=== PATIENT | male | born 1965 | race Caucasian/White ===

== ENCOUNTER → 2021-06-16 15:01 | Outpatient (CLI) | payer BC, SELFPAY ==
[2021-06-16 17:09] LABS: ALB/GLOB Ratio 1.1 RATIO (0.9-2.4); AST(SGOT) 30 U/L (15-37); Alanine Aminotransfer ALT/SGPT 54 U/L (16-61); Albumin, Serum 4.1 g/dL (3.2-5.0); Alkaline Phosphatase 50 U/L (45-117); Anion Gap 3 (5-15); BUN 23 mg/dL (7-18); BUN/Creat Ratio 26.2 RATIO (10-20); Calcium,Total 9.4 mg/dL (8.5-10.1); Chloride 104 mmol/L (98-107); Cholesterol 144 mg/dL (200); Creatinine, Serum 0.88 mg/dL (0.70-1.30); EST Glomerular Filtration Rate 95 mL/min (>60); Est Glom Filt Rate - Afr Amer 116 mL/min (>60); Globulin 3.7 g/dL (2.2-4.2); Glucose 156 mg/dL (74-106); High Density Lipoprotein 50 mg/dL; Potassium 4.8 mmol/L (3.5-5.1); Protein, Total 7.8 g/dL (6.4-8.2); Sodium Level 137 mmol/L (136-145); Thyroid Stim Hormone (TSH) 2.51 uIU/mL (0.358-3.74); Triglycerides 113 mg/dL; Very Low Density Lipoprotein 23 mg/dL (5-40)
[2021-06-16 17:13] LABS: Microalbumin:Creatinine Ratio 70.2 mg/g CRE (<30 mg/g CRE)
[2021-06-16 17:32] LABS: Vitamin D,25 Hydroxy 29.8 ng/mL
== END ==
PROVIDERS: PCP Family Medicine; Referring Provider Internal Medicine Endocrinology, Diabetes & Metabolism; Visit Provider Internal Medicine Endocrinology, Diabetes & Metabolism
DX: E11.65 Type 2 diabetes mellitus with hyperglycemia (principal); E78.00 Pure hypercholesterolemia, unspecified; I10 Essential (primary) hypertension; E55.9 Vitamin D deficiency, unspecified; R80.9 Proteinuria, unspecified
CPT/HCPCS: 36415; 80053; 80061; 82043; 82306; 82570; 84443

== ENCOUNTER 2021-11-25 09:48 | Emergency (ER) | payer BC, SELFPAY ==
[2021-11-25 09:49] VITALS: BP 147/86; PULSE 79; RESP 17; TEMP 35; O2SAT 99; BMI 29.6
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
--- NOTE | 2021-11-25 09:59 | CT_ITS ---
STUDY: CT CERVICAL SPINE WITHOUT CONTRAST REASON FOR EXAM: Male, 56 years old. Injury RADIATION DOSAGE (If Supplied By Facility): CTDIvol = ( 22.19 ) mGy, DLP = ( 391.97 ) mGycm TECHNIQUE: High resolution transaxial imaging was performed without contrast material. Sagittal and coronal images were reconstructed. Individualized dose optimization techniques were used for this CT. COMPARISON: None FINDINGS: Normal craniovertebral junction. Normal anterior atlantoaxial articulation. Normal odontoid process. Normal cervical lordosis. Normal vertebral bodies and posterior osseous elements. C2-3: Normal endplates. Normal disc height and morphology. Normal central canal and intervertebral neuroforamina. C3-4: Normal endplates. Normal disc height and morphology. Normal central canal and intervertebral neuroforamina. C4-5: Normal endplates. Normal disc height and morphology. Normal central canal and intervertebral neuroforamina. C5-6: Mild degree of disc space narrowing and anterior spondylosis at the C5-C6 level. Mild degree of uncovertebral arthrosis. C6-7: Normal endplates. Normal disc height and morphology. Normal central canal and intervertebral neuroforamina. C7-T1: Normal endplates. Normal disc height and morphology. Normal central canal and intervertebral neuroforamina. Normal visualized soft tissue structures. CT/Spine Cervical without Contras IMPRESSION: Multilevel degenerative changes, as described above. Electronically Signed: Mandeep Griffin MD at 10:38 [facility] ,
--- NOTE | 2021-11-25 09:59 | CT_ITS ---
STUDY: CT FACIAL BONES WITHOUT CONTRAST REASON FOR EXAM: Male, 56 years old. Injury RADIATION DOSAGE (If Supplied By Facility): CTDIvol = ( 29.38 ) mGy, DLP = ( 518.07 ) mGycm TECHNIQUE: The patient was scanned in a multi detector CT scanner. Sagittal and coronal images were reconstructed. Individualized dose optimization techniques were used for this CT. COMPARISON: None. FINDINGS: Right preorbital soft tissue swelling. Normal orbital hollis and orbital contents. Normal nasal bones and anterior nasal spine. Normal facial bones. There is no demonstrated fracture. Mild degree of mucosal thickening along the medial wall of the right maxillary sinus. Nasal septal deviation towards the left side of the midline. CT/Sinus/Facial Bone IMPRESSION: Mucosal thickening along the medial wall of the right maxillary sinus. Right preorbital soft tissue swelling. Electronically Signed: Mandeep Griffin MD at 10:37 EST ,
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
[2021-11-25 10:04] VITALS: O2SAT 99
[2021-11-25] MEDS: Lidocaine/Epi/Tetracaine 50 ML 1 APPLIC TOPICAL (10:12)
[2021-11-25] MEDS: Diphth,Pertuss(Acell),Tet Vac 0.5 ML Vial IM (10:12)
[2021-11-25 11:25] VITALS: PULSE 80; RESP 17; O2SAT 99
== END 2021-11-25 11:29 | disposition home or self-care (01) ==
PROVIDERS: Emergency Provider Emergency Medicine; PCP Family Medicine; Visit Provider Emergency Medicine
DX: S01.81XA Laceration without foreign body of other part of head, initial encounter (principal); E11.9 Type 2 diabetes mellitus without complications; S05.11XA Contusion of eyeball and orbital tissues, right eye, initial encounter; E78.00 Pure hypercholesterolemia, unspecified; S01.119A Laceration without foreign body of unspecified eyelid and periocular area, initial encounter; Z23 Encounter for immunization; S06.0X1A Concussion with loss of consciousness of 30 minutes or less, initial encounter; V86.59XA Driver of other special all-terrain or other off-road motor vehicle injured in nontraffic accident, initial encounter; Y92.89 Other specified places as the place of occurrence of the external cause
CPT/HCPCS: 12011; 70450; 70486; 72125; 90471; 90715; 99283

== ENCOUNTER 2021-12-17 15:42 | Outpatient (CLI) | payer BC, SELFPAY ==
[2021-12-17 17:59] LABS: Anion Gap 5 (5-15); BUN 19 mg/dL (7-18); BUN/Creat Ratio 20.9 RATIO (10-20); Calcium,Total 9.9 mg/dL (8.5-10.1); Chloride 106 mmol/L (98-107); Creatinine, Serum 0.91 mg/dL (0.70-1.30); EST Glomerular Filtration Rate 91 mL/min (>60); Est Glom Filt Rate - Afr Amer 111 mL/min (>60); Glucose 96 mg/dL (74-106); Potassium 4.3 mmol/L (3.5-5.1); Sodium Level 140 mmol/L (136-145)
== END 2021-12-17 23:59 | disposition home or self-care (01) ==
PROVIDERS: PCP Family Medicine; Visit Provider Internal Medicine Cardiovascular Disease
DX: I35.0 Nonrheumatic aortic (valve) stenosis (principal); E11.51 Type 2 diabetes mellitus with diabetic peripheral angiopathy without gangrene; I10 Essential (primary) hypertension; E78.5 Hyperlipidemia, unspecified
CPT/HCPCS: 36415; 80048

== ENCOUNTER 2022-01-05 10:41 | Outpatient (CLI) | payer BC, SELFPAY ==
--- NOTE | 2022-01-05 10:55 | ECHOD_ITS ---
Reason For Study: Aortic Stenosis Procedure This was a 2D Doppler, Color Flow transthoracic echocardiogram. Exam performed in department. Left Ventricle Normal LV size. Left ventricular systolic function is normal. The estimated ejection fraction is 60 %. Stage 1 diastolic dysfunction. No regional wall motion abnormalities noted. Right Ventricle Normal RV size. Normal systolic function. Atria Normal left atrium. Normal right atrium. Mitral Valve Normal mitral valve. Tricuspid Valve Normal tricuspid valve. Mild (1+) tricuspid valve insufficiency. Pulmonary artery systolic pressure is 30 mmHg. Aortic Valve Bicuspid aortic valve. Peak aortic valve gradient 36 mmHg. Mean aortic valve gradient 19 mmHg. Mild aortic stenosis. Pulmonic Valve Normal pulmonic valve. Great Vessels Normal aortic root. The pulmonary artery is normal size. Pericardium/Pleural No pericardial effusion. MMode/2D Measurements & Calculations LVIDd: 5.0 cm IVSd: 1.2 cm LVOT diam: 2.6 cm LVIDs: 3.3 cm LVPWd: 0.98 cm LVOT area: 5.3 cm2 RVDd: 4.5 cm FS: 34.4 % Ao root diam: 3.8 cm LAV(MOD-bp): 44.1 ml Aortic Valve Planimetry: 1.3 cm2 LA dimension: 3.8 cm LAV(MOD-bp) Indexed: 22.3 ml/m2 LAV(MOD-sp2): 51.4 ml LAV(MOD-sp4): 40.3 ml LA A4 area: 15.4 cm2 RA A4 area: 16.4 cm2 Time Measurements MV dec time: 0.39 sec Doppler Measurements & Calculations MV E max emmanuel: 58.1 cm/sec Lat Peak E' Emmanuel: 8.5 cm/sec Med Peak E' Emmanuel: 5.3 cm/sec MV A max emmanuel: 86.6 cm/sec E/E' lat: 6.8 E/E' med: 11.0 MV E/A: 0.67 MV V2 max: 87.4 cm/sec MV P1/2t max emmanuel: 60.8 cm/sec Ao V2 max: 302.7 cm/sec MV max P.1 mmHg MV P1/2t: 100.8 msec Ao max P.7 mmHg MV V2 mean: 41.7 cm/sec MV dec slope: 176.8 cm/sec2 Ao V2 mean: 201.7 cm/sec MV mean P.82 mmHg Ao mean P.9 mmHg MV V2 VTI: 24.9 cm MVA(P1/2t): 2.2 cm2 Ao V2 VTI: 72.5 cm MVA(VTI): 4.0 cm2 SILVESTRE(I,D): 1.4 cm2 SILVESTRE(V,D): 1.3 cm2 LV V1 max: 73.7 cm/sec SV(LVOT): 99.9 ml PA V2 max: 87.6 cm/sec LV V1 max P.2 mmHg LV V1 mean P.2 mmHg LV V1 mean: 49.9 cm/sec LV V1 VTI: 18.8 cm TR max emmanuel: 261.6 cm/sec TR max P.4 mmHg ECHO/Echo Complete Interpretation Summary Normal LV size. Left ventricular systolic function is normal. The estimated ejection fraction is 60 %. Bicuspid aortic valve. Stage 1 diastolic dysfunction. Mean aortic valve gradient 19 mmHg. Mild aortic stenosis. Pulmonary artery systolic pressure is 30 mmHg. Ordering Physician: KJ CRESPO Referring Physician: Brian Minor Performed By: Martin Mojica RCS
== END 2022-01-05 23:59 | disposition home or self-care (01) ==
PROVIDERS: PCP Family Medicine; Visit Provider Internal Medicine Cardiovascular Disease
DX: I35.0 Nonrheumatic aortic (valve) stenosis (principal); I10 Essential (primary) hypertension; E78.5 Hyperlipidemia, unspecified
CPT/HCPCS: 93306

== ENCOUNTER → 2022-01-13 16:45 | Outpatient (CLI) | payer BC, SELFPAY ==
--- NOTE | 2022-01-13 16:55 | CT_ITS ---
STUDY: CTA CHEST REASON FOR EXAM: Male, 56 years old. AORTIC STENOSIS RADIATION DOSAGE (If Supplied By Facility): CTDIvol = ( 13.57 ) mGy, DLP = ( 508.82 ) mGycm TECHNIQUE: The examination was performed with the intravenous administration of IV 100mL Isovue-370. Post-processing of the angiographic images was performed, with multiplanar reformation and 3D reconstruction. Individualized dose optimization techniques were used for this CT. COMPARISON: None. FINDINGS: LUNGS: No consolidation. PLEURA: No pleural effusion. No pneumothorax. PULMONARY VESSELS: No pulmonary emboli identified. MEDIASTINUM: Unremarkable. HEART: Not enlarged. Coronary artery calcifications. AORTA/GREAT VESSELS: Thoracic aorta is normal caliber. Maximal transverse diameter 3.6 cm at the proximal ascending aorta. No aneurysm or dissection. ESOPHAGUS: Small hiatal hernia. UPPER ABDOMEN: No acute findings. BONES/SOFT TISSUES: No acute findings. Pseudoarticulation between the posterior right sixth and seventh ribs. OTHER: None. CT/CTA Chest W/WO Contrast IMPRESSION: No thoracic aortic aneurysm or dissection. No acute findings. Electronically Signed: Deepthi Ascencio MD at 5:48 EDT ,
== END ==
PROVIDERS: PCP Family Medicine
DX: I35.0 Nonrheumatic aortic (valve) stenosis (principal); E11.51 Type 2 diabetes mellitus with diabetic peripheral angiopathy without gangrene; I10 Essential (primary) hypertension; E78.5 Hyperlipidemia, unspecified
CPT/HCPCS: 71275; Q9967

== ENCOUNTER 2022-06-22 17:16 | Emergency (ER) | payer BC, SELFPAY ==
[2022-06-22 17:16] VITALS: BP 152/89; PULSE 73; RESP 15; TEMP 36.4; O2SAT 98; BMI 29.7
--- NOTE | 2022-06-22 17:49 | EKG12_ITS ---
Test Reason : CP Blood Pressure : / mmHG Vent. Rate : 070 BPM Atrial Rate : 070 BPM P-R Int : 174 ms QRS Dur : 086 ms QT Int : 358 ms P-R-T Axes : 046 000 006 degrees QTc Int : 386 ms Normal sinus rhythm Minimal voltage criteria for LVH, may be normal variant ( R in aVL ) Borderline ECG Confirmed by MALLY SMITH, AMBROSIO ([id number]), society editor KVNG FIGUEROA ([id number]) on 06/23/2022 2:01:32 PM Referred By: Confirmed By:AMBROSIO BAL MD
[2022-06-22 17:50] VITALS: O2SAT 98
--- NOTE | 2022-06-22 17:56 | RAD_ITS ---
STUDY: X-RAY CHEST REASON FOR EXAM: Male, 56 years old. chest pain TECHNIQUE: XR Chest 1 View COMPARISON: None FINDINGS: There is no demonstrated pleural abnormality. Normal size heart. Normal mediastinum and faye. Normal visualized pulmonary arteries. There is atherosclerotic calcification of the aortic arch with tortuosity. There are diffuse degenerative changes of the visualized thoracic spine. There is degenerative osteoarthritis of the bilateral shoulders. There is no demonstrated abnormality of the visualized soft tissue structures of the upper abdomen. RAD/Chest 1 View (Portable) IMPRESSION: There are no acute findings. Electronically Signed: Chip Strong MD at 18:19 EDT ,
[2022-06-22 18:03] LABS: Absolute Lymphocyte Count 1.88 X10^3/uL (0.83-4.51); Absolute Neutrophil Count 3.3 X10^3/uL (2.0-7.7); Basophil# 0.03 X10^3/uL; Basophil% 0.5 % (0-1); Eosinophil# 0.17 X10^3/uL; Eosinophils% 2.9 % (0-5); Hematocrit 39.2 % (40-54); Hemoglobin 13.6 g/dL (13.0-16.5); Lymphocyte # 1.88 X10^3/ul (0.83-4.51); Lymphocyte % 31.8 % (19-41); Mean Corp Hgb Conc 34.7 g/dL (32-36); Mean Corpuscular Volume 86.5 fL (80-94); Mean Platelet Vol. 9.7 fl (6.2-12.0); Monocyte# 0.55 X10^3/uL; Monocyte% 9.3 % (0-10); NRBC Flagged by Analyzer 0 % (0-5); Neutrophil # 3.25 X10^3/uL (2.7-7.7); Neutrophil % 54.8 % (47-70); Platelet Count 177 K/mm3 (150-450); RBC Distribution Width CV 12.6 % (11.6-14.6); RBC Distribution Width SD 39.6 fl (35.1-43.9); Red Blood Count 4.53 M/mm3 (4.6-6.2); White Blood Count 5.9 K/mm3 (4.4-11.0)
[2022-06-22 18:21] LABS: Anion Gap 7 (5-15); BUN 19 mg/dL (7-18); Calcium,Total 9.6 mg/dL (8.5-10.1); Chloride 105 mmol/L (98-107); Creatinine, Serum 1.19 mg/dL (0.70-1.30); EST Glomerular Filtration Rate 67 mL/min (>60); Est Glom Filt Rate - Afr Amer 81 mL/min (>60); Glucose 246 mg/dL (74-106); Potassium 4.8 mmol/L (3.5-5.1); Sodium Level 140 mmol/L (136-145); Troponin-I HS 9 pg/mL (3.0-78.0)
[2022-06-22 18:30] VITALS: BP 149/93; PULSE 72; RESP 17; O2SAT 99
--- NOTE | 2022-06-22 18:35 | EDS_ITS ---
HPI History of Present Illness Chief Complaint: Chest Pain Narrative Narrative: 56-year-old male presenting with chest pain. He states that he was push mowing his yard with a self-propelled mower and started to have chest pain in the left side of his chest which radiated into his arm and up his neck. He states that this lasted a couple of minutes. He states he had chest tightness last week when he had his pneumonia shot and is lasted for couple of days but resolved. He states he has a history of aortic stenosis and a heart murmur. His last stress test was 2 to 3 years ago. He is never had an IN or cardiac stents. He admits to hypertension, hyperlipidemia, diabetes. Patient states that this time of year he tries to get in shape a little bit so that he can go hunting. 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 He has not had any chest pain with the running episodes. He denies any fever, chills, body aches, cough. No history of DVT/PE. [facility] Medical History Diabetes Heart valve problem High blood pressure High cholesterol History of aortic stenosis Microalbuminuria Tonsillectomy planned Home Medications carvedilol 3.125 mg tablet ea PO 06/09/21 [History Last Taken Unknown] lisinopril 40 mg tablet 40 ea PO DAILY 06/09/21 [History Last Taken Unknown] rosuvastatin 20 mg tablet ea PO 06/09/21 [History Last Taken Unknown] Farxiga 10 mg tablet (dapagliflozin) 10 mg PO DAILY #90 tabs 06/17/21 [Rx Last Taken Unknown] carvedilol 6.25 mg tablet 6.25 mg PO BID 11/24/21 [History Last Taken Unknown] cholecalciferol (vitamin D3) 50 mcg (2,000 unit) capsule 50 mcg PO DAILY 11/24/21 [History Last Taken Unknown] garlic 1,000 mg capsule 1,000 mg PO DAILY 11/24/21 [History Last Taken Unknown] omega-3 fatty acids 1,000 mg capsule 1,000 mg PO DAILY 11/24/21 [History Last Taken Unknown] insulin glargine 100 unit/mL (3 mL) subcutaneous pen 55 unit (0.55 mL) subcut QHS #18 mL 04/26/22 [Rx Last Taken Unknown] insulin lispro 100 unit/mL subcutaneous pen (Humalog KwikPen (U-100) Insulin) 20 unit (0.2 mL) subcut ONCE #6 mL 04/26/22 [Rx Last Taken Unknown] metformin 750 mg tablet,extended release 24 hr 750 mg PO BID #180 tabs 05/04/22 [Rx Last Taken Unknown] glimepiride 4 mg tablet 4 mg PO DAILY #90 tabs 05/17/22 [Rx Last Taken Unknown] Allergy/AdvReac Type Severity Reaction Status Date / Time No Known Allergies Allergy Verified 06/22/22 17:18 Family History Other CVA (cerebral vascular accident) Colon cancer Diabetes Heart disease High cholesterol Hypertension Kidney disease Myocardial infarction Social History Smoking Status: Never smoker alcohol intake: current alcohol intake frequency: holidays/special occasions only substance use type: does not use what type of physical activity do you participate in: none ROS ROS ED Constitutional Constitutional ED: Denies chills or fever(s) Eyes Eyes: Reports none ENT ENT ED: Denies rhinorrhea or sore throat Cardiovascular Cardiovascular: Reports as per HPI Respiratory/Chest Respiratory/Chest: Reports dyspnea; Denies cough Gastrointestinal Gastrointestinal: Denies abdominal pain or constipation Genitourinary Genitourinary ED: Denies dysuria or hematuria Musculoskeletal Musculoskeletal: Denies arthralgias or back pain Integumentary Denies abscess or Abrasions Neurologic Neurologic: Denies headache(s) or paresthesias Psychiatric Psychiatric: Denies anxiety or depression EXAM Physical Exam Const Vital Signs: 06/22/22 17:16 06/22/22 17:21 06/22/22 17:50 Temperature 97.6 F L Temperature Source Temporal Pulse Rate 73 Respiratory Rate 15 Respiratory Effort Normal Blood Pressure 152/89 H Blood Pressure Mean 110 Pulse Ox 98 98 Oxygen Delivery Method Room Air Room Air 06/22/22 18:30 06/22/22 19:08 06/22/22 20:20 Temperature Temperature Source Pulse Rate 72 67 65 Respiratory Rate 17 13 14 Respiratory Effort Blood Pressure 149/93 H 110/64 121/73 H Blood Pressure Mean 111 79 89 Pulse Ox 99 98 96 Oxygen Delivery Method Room Air Room Air 06/22/22 21:04 Temperature Temperature Source Pulse Rate 61 Respiratory Rate 15 Respiratory Effort Blood Pressure 133/77 H Blood Pressure Mean 95 Pulse Ox 96 Oxygen Delivery Method Room Air Positive well nourished General Appearance ED: NAD HEENT Reports TM's clear and moist mucous membranes Tympanic Membrane ED: Yes TM's clear Eyes PERRL and EOMs intact bilaterally Neck no lymphadenopathy Chest Wall inspection of chest normal and palpation of chest normal Resp normal respiratory effort and clear to auscultation bilaterally Cardio regular rate and regular rhythm Heart Score History: Moderately Suspicious ECG: Normal Age: >/= 65 years Risk Factors: >/= 3 Risk Factors or History of CAD Troponin: </= Normal Limit Score: 5 MDM MDM Lab Data Attestation: I reviewed the patient's lab results. Lab results narrative: Patient presenting with chest pain which started while mowing earlier today. It lasted about 3 minutes. He states that radiated to the left arm and left jaw. It is now resolved. Patient does admit to some chest pain last week after he has his pneumonia shot he states he had some tightness for a few days. He does admit that he was able to run at a slower pace with some dyspnea without chest pain just this last week. Last stress test was a couple years ago. HEART score is 5. EKG was obtained and sinus rhythm with a ventricular rate of 70 bpm without sign of ischemic change on my interpretation. Chest x-ray shows no acute cardiopulmonary process my interpretation the radiologist agree. CBC and BMP are unremarkable. High-sensitivity troponin is 9. Patient is PERC negative. Delta troponin came back at 23. I had a long discussion with the patient regarding heart score and his risk factors and recommended to him that he stay for cardiac evaluation. He states that he does not want to stay and he acknowledged risks of signing out AGAINST MEDICAL ADVICE. I will have him sign a form of documentation. 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 Return precautions were discussed at length. Impression: 1. Chest pain Labs: Laboratory Results - last 24 hr 06/22/22 06/22/22 06/22/22 17:55 17:55 19:52 WBC 5.9 RBC 4.53 L Hgb 13.6 Hct 39.2 L MCV 86.5 MCH 30.0 MCHC 34.7 RDW Std Deviation 39.6 RDW Coeff of [place] 12.6 Plt Count 177 MPV 9.7 Immature Gran % (Auto) 0.700 Neut % (Auto) 54.8 Lymph % (Auto) 31.8 [place] % (Auto) 9.3 Eos % (Auto) 2.9 Baso % (Auto) 0.5 Absolute Neuts (auto) 3.3 Absolute Lymphs (auto) 1.88 Nucleated RBC % 0 Sodium 140 Potassium 4.8 Chloride 105 Carbon Dioxide 28.0 Anion Gap 7 BUN 19 H Creatinine 1.19 Estim Creat Clear Calc 64.80 Est GFR (MDRD) Af Amer 81 Est GFR (MDRD) Non-Af 67 BUN/Creatinine Ratio 16.0 Glucose 246 H Calcium 9.6 Troponin I High Sens 9 23 Radiography Diagnostic Testing: Clinical Impression(s) from Imaging Studies Chest X-Ray 06/22/22 17:56 IMPRESSION: There are no acute findings. Electronically Signed: Chip Strong MD at 18:19 EDT Reading Location ID and State: [facility] / [place] , Service support , Discharge Plan Triage Chief Complaint: Chest Pain ED Provider: Dontrell Avila Dx/Rx/DC Orders Prescriptions: No Action rosuvastatin 20 mg tablet PO Label Comments: TAKE 1 TABLET BY MOUTH ONCE DAILY lisinopril 40 mg tablet 40 ea PO DAILY Label Comments: TAKE 1 TABLET BY MOUTH ONCE DAILY carvedilol 3.125 mg tablet PO Label Comments: TAKE 1 TABLET BY MOUTH TWICE DAILY WITH MEAL carvedilol 6.25 mg tablet 6.25 mg PO BID garlic 1,000 mg capsule 1,000 mg PO DAILY omega-3 fatty acids 1,000 mg capsule 1,000 mg PO DAILY cholecalciferol (vitamin D3) 50 mcg (2,000 unit) capsule 50 mcg PO DAILY metformin 750 mg tablet extended release 24 hr 750 mg PO BID Qty: 180 1RF Farxiga 10 mg tablet 10 mg PO DAILY Qty: 90 3RF insulin lispro [Humalog KwikPen Insulin] 100 unit/mL insulin pen 20 unit subcut ONCE Qty: 6 3RF insulin glargine 100 unit/mL (3 mL) insulin pen 55 unit subcut QHS Qty: 18 3RF glimepiride 4 mg tablet 4 mg PO DAILY Qty: 90 1RF Primary Care Provider: Brian Barillas Referrals: Brian Barillas MD [Primary Care Provider] -
[2022-06-22 19:08] VITALS: BP 110/64; PULSE 67; RESP 13; O2SAT 98
[2022-06-22 20:20] VITALS: BP 121/73; PULSE 65; RESP 14; O2SAT 96
[2022-06-22 20:35] LABS: Troponin-I HS 23 pg/mL (3.0-78.0)
[2022-06-22 21:04] VITALS: BP 133/77; PULSE 61; RESP 15; O2SAT 96
== END 2022-06-22 21:51 | disposition left against medical advice (07) ==
PROVIDERS: Emergency Provider Student in an Organized Health Care Education/Training Program; PCP Family Medicine; Visit Provider Student in an Organized Health Care Education/Training Program
DX: R07.9 Chest pain, unspecified (principal); E11.9 Type 2 diabetes mellitus without complications; Z79.4 Long term (current) use of insulin; I10 Essential (primary) hypertension; R06.02 Shortness of breath; E78.5 Hyperlipidemia, unspecified; Z79.84 Long term (current) use of oral hypoglycemic drugs; Z79.899 Other long term (current) drug therapy
CPT/HCPCS: 71045; 80048; 84484; 85025; 93005; A4216

== ENCOUNTER 2022-06-22 22:33 | Observation (INO) | payer BC, SELFPAY ==
[2022-06-22 22:35] VITALS: BP 157/83; PULSE 61; RESP 15; TEMP 36.2; O2SAT 100; BMI 29.7
--- NOTE | 2022-06-22 22:46 | EKG12_ITS ---
Test Reason : DYSRHYTHMIA Blood Pressure : / mmHG Vent. Rate : 057 BPM Atrial Rate : 057 BPM P-R Int : 190 ms QRS Dur : 088 ms QT Int : 394 ms P-R-T Axes : 013 002 000 degrees QTc Int : 383 ms Sinus bradycardia Otherwise normal ECG Confirmed by MALLY SMITH, AMBROSIO ([id number]), dictionary editor KVNG FIGUEROA ([id number]) on 06/25/2022 9:38:19 AM Referred By: MADDIE Confirmed By:AMBROSIO BAL MD
--- NOTE | 2022-06-22 22:47 | EX.ED.DYSGE1 ---
HPI History of Present Illness Chief Complaint: General Illness Informant: patient Onset/Context/Timing Onset: Today Current Severity: Gone Maximum Severity: Moderate Narrative Narrative: Patient returns to the ER after signing out AMA earlier this evening. Patient had an episode of chest pain while push mowing his lawn. He has multiple risk factors for heart disease. His troponin went from 9 to 23 during his previous evaluation. It was recommended that he stay for further cardiac testing but he wished to sign out AMA and follow-up with his information technology technician. He called his information technology technician and spoke with the doctor bridal sales consultant from the parking lot. They did raise concern and recommend he come back in for admission and further testing. Patient is denying chest pain at the present time. [facility] Medical History Diabetes Heart valve problem High blood pressure High cholesterol History of aortic stenosis Microalbuminuria Tonsillectomy planned Home Medications carvedilol 3.125 mg tablet ea PO 06/09/21 [History Last Taken Unknown] lisinopril 40 mg tablet 40 ea PO DAILY 06/09/21 [History Last Taken Unknown] rosuvastatin 20 mg tablet ea PO 06/09/21 [History Last Taken Unknown] Farxiga 10 mg tablet (dapagliflozin) 10 mg PO DAILY #90 tabs 06/17/21 [Rx Last Taken Unknown] carvedilol 6.25 mg tablet 6.25 mg PO BID 11/24/21 [History Last Taken Unknown] cholecalciferol (vitamin D3) 50 mcg (2,000 unit) capsule 50 mcg PO DAILY 11/24/21 [History Last Taken Unknown] garlic 1,000 mg capsule 1,000 mg PO DAILY 11/24/21 [History Last Taken Unknown] omega-3 fatty acids 1,000 mg capsule 1,000 mg PO DAILY 11/24/21 [History Last Taken Unknown] insulin glargine 100 unit/mL (3 mL) subcutaneous pen 55 unit (0.55 mL) subcut QHS #18 mL 04/26/22 [Rx Last Taken Unknown] insulin lispro 100 unit/mL subcutaneous pen (Humalog KwikPen (U-100) Insulin) 20 unit (0.2 mL) subcut ONCE #6 mL 04/26/22 [Rx Last Taken Unknown] metformin 750 mg tablet,extended release 24 hr 750 mg PO BID #180 tabs 05/04/22 [Rx Last Taken Unknown] glimepiride 4 mg tablet 4 mg PO DAILY #90 tabs 05/17/22 [Rx Last Taken Unknown] Allergy/AdvReac Type Severity Reaction Status Date / Time No Known Allergies Allergy Verified 06/22/22 17:18 Family History Other CVA (cerebral vascular accident) Colon cancer Diabetes Heart disease High cholesterol Hypertension Kidney disease Myocardial infarction Social History Smoking Status: Never smoker alcohol intake: current alcohol intake frequency: holidays/special occasions only substance use type: does not use what type of physical activity do you participate in: none ROS ROS ED Constitutional Constitutional ED: Denies chills or fever(s) Eyes Eyes: Denies change in vision or discharge from eye(s) ENT ENT ED: Denies discharge from eye(s), rhinorrhea or sore throat Cardiovascular Cardiovascular: Reports chest pain; Denies palpitations Respiratory/Chest Respiratory/Chest: Denies cough or dyspnea Gastrointestinal Gastrointestinal: Denies abdominal pain, nausea or vomiting Genitourinary Genitourinary ED: Denies dysuria Musculoskeletal Musculoskeletal: Denies back pain or extremity pain Integumentary Denies Abrasions or rash Neurologic Neurologic: Denies headache(s) or weakness Psychiatric Psychiatric: Denies anxiety or depression Allergic/Immunologic Allergic/Immunologic ED: Denies lip swelling or urticaria EXAM Physical Exam Const Vital Signs: 06/22/22 22:35 Temperature 97.2 F L Temperature Source Temporal Pulse Rate 61 Respiratory Rate 15 Blood Pressure 157/83 H Blood Pressure Mean 107 Pulse Ox 100 Oxygen Delivery Method Room Air Positive well nourished and well developed General Appearance ED: well developed HEENT Reports normocephalic and head/scalp atraumatic Eyes PERRL and EOMs intact bilaterally Neck supple Chest Wall inspection of chest normal and palpation of chest normal Resp normal respiratory effort and clear to auscultation bilaterally Cardio regular rate and regular rhythm GI normal to inspection, nondistended, normoactive bowel sounds Palpation: soft Extremity normal to inspection Neuro oriented x3 and no sensory deficits noted Sensorium / Orientation: alert Motor Exam: strength 5/5 throughout Psych mental status grossly normal Skin no rashes or lesions noted MDM MDM MDM Narrative Medical decision making narrative: Patient will be given aspirin as he has not yet had this today. He is placed on awake overnight monitor. EKG will be obtained along with another troponin. I will speak with hospitalist regarding admission. Discharge Plan Triage Chief Complaint: General Illness ED Provider: Gia Mendoza Dx/Rx/DC Orders Clinical Impression: Chest pain Prescriptions: No Action rosuvastatin 20 mg tablet PO Label Comments: TAKE 1 TABLET BY MOUTH ONCE DAILY lisinopril 40 mg tablet 40 ea PO DAILY Label Comments: TAKE 1 TABLET BY MOUTH ONCE DAILY carvedilol 3.125 mg tablet PO Label Comments: TAKE 1 TABLET BY MOUTH TWICE DAILY WITH MEAL carvedilol 6.25 mg tablet 6.25 mg PO BID garlic 1,000 mg capsule 1,000 mg PO DAILY omega-3 fatty acids 1,000 mg capsule 1,000 mg PO DAILY cholecalciferol (vitamin D3) 50 mcg (2,000 unit) capsule 50 mcg PO DAILY metformin 750 mg tablet extended release 24 hr 750 mg PO BID Qty: 180 1RF Farxiga 10 mg tablet 10 mg PO DAILY Qty: 90 3RF insulin lispro [Humalog KwikPen Insulin] 100 unit/mL insulin pen 20 unit subcut ONCE Qty: 6 3RF insulin glargine 100 unit/mL (3 mL) insulin pen 55 unit subcut QHS Qty: 18 3RF glimepiride 4 mg tablet 4 mg PO DAILY Qty: 90 1RF Primary Care Provider: Brian Barillas Referrals: Brian Barillas MD [Primary Care Provider] - Disposition Disposition: Acute Care Hospital [facility]
--- NOTE | 2022-06-22 23:17 | PCM.HP.STD ---
[facility] - General General Date of Admission: 06/22/22 Date of Service: 06/22/22 Chief Complaint: Chest pain HPI Narrative LARISSA MADERA, is a 56 M with a significant history of aortic stenosis; hypertension; diabetes mellitus who presented to emergency department with chest pain that started while she was using a push mower to mow his yard. Reportedly he went uphill tomorrow and developed left-sided chest pain. He described the pain as sharp. The pain was excruciating. The pain radiated to his left, the left side of his neck, and the left side of his jaw. The pain also radiated to below his left shoulder blade. When he rested the pain improved. He then went back to complete the rest of the mowing. Associated with symptom was shortness of breath and multiple episodes of burping. Within about 1 hour he was at the emergency department and was evaluated. His initial troponin was 9. Follow-up troponin was 23. An offer was made for patient to stay at hospital. However patient elected to go home with a plan to see his cardiology the following morning. Patient then left the emergency department to go home. While at the parking lot of the hospital patient called his cardiology's office. Patient was advised to come back to the emergency department for further testing. Of note patient was found to have aortic stenosis when he had COVID and follows up with cardiology. [facility] Medical History Diabetes Heart valve problem High blood pressure High cholesterol History of aortic stenosis Microalbuminuria Home Medications lisinopril 40 mg tablet 40 ea PO DAILY 06/09/21 [History Last Taken Unknown] rosuvastatin 20 mg tablet 20 ea PO DINNER 06/09/21 [History Last Taken Unknown] Farxiga 10 mg tablet (dapagliflozin) 10 mg PO DAILY #90 tabs 06/17/21 [Rx Last Taken Unknown] carvedilol 6.25 mg tablet 6.25 mg PO BID 11/24/21 [History Last Taken Unknown] cholecalciferol (vitamin D3) 50 mcg (2,000 unit) capsule 50 mcg PO DAILY 11/24/21 [History Last Taken Unknown] garlic 1,000 mg capsule 1,000 mg PO DAILY 11/24/21 [History Last Taken Unknown] omega-3 fatty acids 1,000 mg capsule 1,000 mg PO DAILY 11/24/21 [History Last Taken Unknown] insulin glargine 100 unit/mL (3 mL) subcutaneous pen 55 unit (0.55 mL) subcut QHS #18 mL 04/26/22 [Rx Last Taken Unknown] metformin 750 mg tablet,extended release 24 hr 750 mg PO BID #180 tabs 05/04/22 [Rx Last Taken Unknown] glimepiride 4 mg tablet 4 mg PO DAILY #90 tabs 05/17/22 [Rx Last Taken Unknown] insulin lispro 100 unit/mL subcutaneous pen (Humalog KwikPen (U-100) Insulin) 20 unit subcut DINNER 06/22/22 [History Last Taken Unknown] Allergy/AdvReac Type Severity Reaction Status Date / Time No Known Allergies Allergy Verified 06/22/22 17:18 Family History Other CVA (cerebral vascular accident) Colon cancer Diabetes Heart disease High cholesterol Hypertension Kidney disease Myocardial infarction Surgical History Hx of tonsillectomy Social History Smoking Status: Never smoker alcohol intake: current alcohol intake frequency: holidays/special occasions only substance use type: does not use what type of physical activity do you participate in: none ROS ROS Narrative Pertinent positives and pertinent negatives as noted in HPI. All other systems were reviewed and are negative. Vital Signs Vital Signs Vital Signs: 06/22/22 22:35 06/22/22 23:04 Temperature 97.2 F L Temperature Source Temporal Pulse Rate 61 Respiratory Rate 15 Respiratory Effort Normal Blood Pressure 157/83 H Blood Pressure Mean 107 Pulse Ox 100 Oxygen Delivery Method Room Air Weight Weight: 86.183 kg Body Mass Index (BMI) 29.7 Physical Exam Narrative Physical exam: General: Well-nourished, well-developed. Head: Normocephalic, atraumatic, no tenderness Eyes: Vision is grossly intact. EOMI ENT, no trauma, moist mucous membranes, no rhinorrhea Neck: Nontender, full range of motion, no spinal tenderness, deformities, step-off CVS: Regular rate and rhythm. S1-S2 present. Murmur present. Respiratory : clear to auscultation bilaterally, chest wall nontender, no wheezing Abdomen: Soft, nontender, nondistended, normal bowel sounds, no masses : Deferred Back: Nontender, no CVA tenderness, no midline spinal tenderness, deformities, step-offs Extremities: Nontender full range of motion, no trauma Skin: Normal color, no trauma, abrasions Neuro: Alert, oriented, cranial nerves II through XII grossly intact. Psychiatry: Normal mood. Normal affect. Not depressed. Not anxious. Results Lab / Micro Data Attestation: I reviewed the patient's lab results. Assessment & Plan Assessment/Plan (1) Chest pain: (2) Diabetes: QUALIFIERS: Diabetes mellitus complication status: with hyperglycemia Diabetes mellitus terminal gauger insulin use: without skilled nursing use Diabetes mellitus type: type 2 Qualified Code(s): E11.65 - Type 2 diabetes mellitus with hyperglycemia PLAN: Plan Chest Pain Place on a monitored bed at the progressive care unit. Actual CXR image was independently visualized. No acute cardiopulmonary process was noted. I agree with allege interpretation Actual EKG tracing was independently visualized. Initial EKG showed sinus rhythm. Follow-up EKG on second emergency visits on the same day showed sinus bradycardia with a rate of 57. ASA 81 mg p.o. daily ordered SL NTG 0.4 mg prn as needed for chest pain ordered Morphine as needed for pain ordered Will check lipid panel. Statin: High intensity statin continued. High sensitivity troponin: 9>23>20 Stat EKG as needed for chest pain Treadmill Stress test in the AM Diabetes mellitus Patient with hyperglycemia on presentation Calorie controlled cardiac diet ordered. N.p.o. after midnight for stress test in the a.m. Home basal insulin adjusted. Prandial insulin with dinner held. Glimepiride and metformin held. Farxiga continued. Monitor Accu-Cheks Correction scale insulin ordered. Hypertension Blood pressure is not within goal Lisinopril and carvedilol continued. Hold carvedilol per protocol for stress test. Trend blood pressure and adjust blood pressure medications. Aortic Stenosis Echocardiogram on 01/05/2022 was reviewed. Echocardiogram at that time showed stage I diastolic dysfunction and mild aortic stenosis. With symptoms of angina repeat echocardiogram ordered. DVT prophylaxis : SCD. Charges/Coding Visit Charges OBSV E&M: 87296 Initial observation care L3
[2022-06-22 23:22] LABS: Troponin-I HS 20 pg/mL (3.0-78.0)
[2022-06-22] MEDS: Aspirin 81 MG TAB.CHEW 324 MG PO (23:23)
[2022-06-22 23:48] VITALS: BP 155/87; PULSE 65; RESP 16; TEMP 36.7; O2SAT 97
[2022-06-23] VITALS (12 sets, daily range): BP systolic 111–148; BP diastolic 64–78; PULSE 58–86; RESP 16–18; TEMP 35.5–36.9; O2SAT 95–99; BMI 29.7
[2022-06-23 00:40] LABS: Bedside Glucose 172 mg/dL (74-106)
--- NOTE | 2022-06-23 01:22 | EKG12_ITS ---
Test Reason : CP ADMIT Blood Pressure : / mmHG Vent. Rate : 059 BPM Atrial Rate : 059 BPM P-R Int : 200 ms QRS Dur : 092 ms QT Int : 398 ms P-R-T Axes : 008 000 -04 degrees QTc Int : 394 ms Sinus bradycardia Minimal voltage criteria for LVH, may be normal variant ( R in aVL ) Borderline ECG Confirmed by SUSANNA SMITH, YURY ([id number]), editorial cartoonist KVNG FIGUEROA ([id number]) on 06/24/2022 9:43:47 AM Referred By: Confirmed By:YURY MULLINS MD
[2022-06-23] MEDS: Aspirin E.C. 81 MG Tablet PO (05:53)
[2022-06-23] MEDS: Lisinopril 40 MG Tablet PO (05:53)
--- NOTE | 2022-06-23 05:55 | ECHOD_ITS ---
Reason For Study: CHEST PAIN Procedure This was a 2D Doppler, Color Flow transthoracic echocardiogram. Exam performed portable in patient room. Left Ventricle Normal LV size. Left ventricular systolic function is normal. The estimated ejection fraction is 55 %. Stage 1 diastolic dysfunction. No regional wall motion abnormalities noted. Right Ventricle Normal RV size. Normal systolic function. Atria Normal left atrium. Normal right atrium. Mitral Valve Normal mitral valve. Tricuspid Valve Normal tricuspid valve. Mild tricuspid valve insufficiency. Pulmonary artery systolic pressure is 33 mmHg. Aortic Valve Bicuspid aortic valve. Mild focal aortic valve calcification. Peak aortic valve gradient 34 mmHg. Mean aortic valve gradient 20 mmHg. Mild aortic stenosis. Calculated aortic valve area (continuity equation) is 1.7 cm2. Pulmonic Valve Normal pulmonic valve. Great Vessels Mildly dilated aortic root. The pulmonary artery is normal size. Normal inferior vena cava. Pericardium/Pleural No pericardial effusion. MMode/2D Measurements & Calculations LVIDd: 5.0 cm IVSd: 1.1 cm LVOT diam: 2.9 cm LVIDs: 3.4 cm LVPWd: 0.99 cm LVOT area: 6.6 cm2 FS: 31.8 % Ao root diam: 3.9 cm LAV(MOD-bp): 81.1 ml LVAd ap4: 28.8 cm2 LAV(MOD-bp) Indexed: 41.1 ml/m2 LVLd ap4: 8.9 cm LAV(MOD-sp2): 74.5 ml EDV(MOD-sp4): 78.6 ml LAV(MOD-sp4): 83.5 ml EDV(sp4-el): 78.9 ml LVAs ap4: 17.3 cm2 LVLs ap4: 6.6 cm ESV(MOD-sp4): 39.9 ml ESV(sp4-el): 38.8 ml EF(MOD-sp4): 49.2 % EF(sp4-el): 50.8 % SV(MOD-sp4): 38.7 ml SV(sp4-el): 40.1 ml LA A4 area: 25.1 cm2 LA dimension(2D): 4.3 cm RA A4 area: 14.5 cm2 Time Measurements MV dec time: 0.30 sec Doppler Measurements & Calculations MV E max emmanuel: 51.4 cm/sec Lat Peak E' Emmanuel: 10.8 cm/sec Med Peak E' Emmanuel: 6.6 cm/sec MV A max emmanuel: 67.1 cm/sec E/E' lat: 4.7 E/E' med: 7.7 MV E/A: 0.77 MV V2 max: 74.5 cm/sec Ao V2 max: 289.4 cm/sec MV max P.2 mmHg MV dec slope: 173.3 cm/sec2 Ao max P.2 mmHg MV V2 mean: 37.6 cm/sec Ao V2 mean: 204.3 cm/sec MV mean P.70 mmHg Ao mean P.2 mmHg MV V2 VTI: 24.5 cm Ao V2 VTI: 68.8 cm MVA(VTI): 4.9 cm2 SILVESTRE(I,D): 1.8 cm2 SILVESTRE(V,D): 1.7 cm2 LV V1 max: 76.1 cm/sec SV(LVOT): 120.5 ml PA V2 max: 80.8 cm/sec LV V1 max P.3 mmHg PA V2 mean: 58.6 cm/sec LV V1 mean P.5 mmHg LV V1 mean: 57.8 cm/sec LV V1 VTI: 18.2 cm TR max emmanuel: 271.8 cm/sec TR max P.5 mmHg ECHO/Echo Complete Interpretation Summary Normal LV size. Left ventricular systolic function is normal. The estimated ejection fraction is 55 %. Bicuspid aortic valve. Mild focal aortic valve calcification. Mean aortic valve gradient 20 mmHg. Stage 1 diastolic dysfunction. Compared to previous study, the left ventricular systolic function is the same. . Ordering Physician: Mac James Performed By: Erin Paula RCS
[2022-06-23 06:16] LABS: Bedside Glucose 154 mg/dL (74-106)
[2022-06-23 07:15] LABS: Cholesterol 131 mg/dL (200); High Density Lipoprotein 43 mg/dL; Triglycerides 114 mg/dL; Very Low Density Lipoprotein 23 mg/dL (5-40)
[2022-06-23] MEDS: Carvedilol 6.25 MG Tablet PO ×2 (10:44→23:03)
[2022-06-23] MEDS: Cholecalciferol (VIT D3) 25 MCG TABLET (1,000 UNITS) 50 MCG PO (10:44)
[2022-06-23] MEDS: Omega-3 Acid Ethyl Esters 1 GM Capsule PO (10:44)
--- NOTE | 2022-06-23 15:26 | STRESSREP_ITS ---
Stress Test Report Date: 06-23-2022 Procedure: Exercise tolerance test/imaging study Indications: Chest pain Consent: Per the patient Procedure: The patient exercised on a Andrey protocol for 8 minutes completing Stage II and 2 minutes of Stage III achieving a peak heart rate of 141 bpm (85% predicted maximal heart rate) with a peak blood pressure 162/70 mmHg and a peak MET capacity of 9 METs. The baseline ECG demonstrated normal sinus rhythm. The peak exercise ECG demonstrated approximately 2 mm of horizontal/downsloping ST segment depression in leads II, III, aVF, and approximately [address] segment depression in leads V5 and V6 with gradual resolution towards baseline in recovery. There were no cardiac dysrhythmias pretest, during exercise, or recovery. The functional capacity was considered good. There was left shoulder discomfort and dyspnea with spontaneous improvement in recovery. The examination was discontinued secondary to left shoulder discomfort and dyspnea. Impression: 1. Technically adequate (percent predicted maximal heart rate greater than 85%) exercise tolerance test 2. Peak exercise ECG considered abnormal with approximately 2 mm horizontal/downsloping ST segment depression in leads II, III, aVF, and approximately [address] segment depression in leads V5 and V6 with gradual resolution towards baseline in recovery 3. There were no cardiac dysrhythmias pretest, during exercise, or recovery 4. Nuclear images pending Myocardial perfusion imaging study: Technique: The patient was injected with 11.0 mCi of technetium 99m Cardiolite and subsequently rest SPECT Cardiolite nuclear imaging was obtained in the horizontal long, vertical long, and short axis views. The patient exercised on a Andrey protocol for 8 minutes completing Stage II and 2 minutes of Stage III achieving a peak heart rate of 141 bpm (85% predicted maximal heart rate) with a peak blood pressure 162/70 mmHg and a peak MET capacity of 9 METs. The patient was injected with 33.2 mCi of technetium 99m Cardiolite and subsequently stress SPECT Cardiolite nuclear imaging was obtained in the horizontal long, vertical l benjamín, and short axis views. A gated Cardiolite study at peak stress was obtained. Interpretation: Rest and stress SPECT Cardiolite nuclear imaging status post realignment, normalization, and attenuation correction, demonstrates rest the appearance of relative uniform tracer uptake and status post-rest the appearance of an area of diminished tracer uptake in portions of the septal/septal apical segments. There are similar type findings on the resting and stress polar map images. There is end systolic thickening and brightening. The gated Cardiolite study demonstrates myocardial thickening and inward wall motion. The reported LVEF is 53%. Impression: 1. Rest and stress SPECT Cardiolite nuclear imaging demonstrate myocardial perfusion changes concerning for an area of stress-induced myocardial ischemia involving portions of the septal/septal apical segments. 2. The gated Cardiolite study reports an LVEF of 53%. This note was generated with [employer] software. It may contain incorrect words, spelling, and punctuation that were not noted in checking the note before signing.
--- NOTE | 2022-06-23 16:05 | DCINST_ITS ---
Discharge Instructions Diet Discharge Diet: Low fat / Low cholesterol and Carb Control Diet Activity Discharge Activity: Return to Normal Activity Dressing / Incision Call your doctor if you observe: Shortness of breath, Dizziness and Chest pain Follow Up Care Test Results: Test results from this visit will be discussed in further detail at your follow- up appointment, if applicable. Discharge Plan Admission Admit Date/Time: 06/22/22 23:05 Primary Reason for Your Visit: Chest pain Attending Provider: Travis Jones Primary Care Provider: Brian Barillas Consulting Providers: Mac James Discharge Orders/Prescriptions Prescriptions: Continued rosuvastatin 20 mg tablet 20 ea PO DINNER Label Comments: TAKE 1 TABLET BY MOUTH ONCE DAILY lisinopril 40 mg tablet 40 ea PO DAILY Label Comments: TAKE 1 TABLET BY MOUTH ONCE DAILY carvedilol 6.25 mg tablet 6.25 mg PO BID garlic 1,000 mg capsule 1,000 mg PO DAILY omega-3 fatty acids 1,000 mg capsule 1,000 mg PO DAILY cholecalciferol (vitamin D3) 50 mcg (2,000 unit) capsule 50 mcg PO DAILY metformin 750 mg tablet extended release 24 hr 750 mg PO BID Qty: 180 1RF insulin lispro [Humalog KwikPen Insulin] 100 unit/mL insulin pen 20 unit subcut DINNER Rx Instructions: takes at dinner Farxiga 10 mg tablet 10 mg PO DAILY Qty: 90 3RF Rx Instructions: in the evening 6pm insulin glargine 100 unit/mL (3 mL) insulin pen 55 unit subcut QHS Qty: 18 3RF glimepiride 4 mg tablet 4 mg PO DAILY Qty: 90 1RF Referrals / Follow Up: Brian Barillas MD [Primary Care Provider] - In 1 Week Disposition Disposition (needs filled in before D/C Order can be placed): Home, Self Care
--- NOTE | 2022-06-23 16:07 | PCM.DC.SUM ---
Providers Date of Admission: 06/22/22 Date of Discharge: 06/23/22 Primary Care Physician: Dr. Brian Barillas MD Reason For Visit: CHEST PAIN Diagnosis Discharge Diagnosis (1) Chest pain: Status: Acute Code(s): R07.9 - Chest pain, unspecified (2) Diabetes: Status: Chronic Code(s): E11.9 - Type 2 diabetes mellitus without complications Qualifiers: Diabetes mellitus type: type 2 Diabetes mellitus intermission coordinator insulin use: without intermission coordinator use Diabetes mellitus complication status: with hyperglycemia Qualified Code(s): E11.65 - Type 2 diabetes mellitus with hyperglycemia Medications at Discharge Home Medications lisinopril 40 mg tablet 40 ea PO DAILY 06/09/21 rosuvastatin 20 mg tablet 20 ea PO DINNER 06/09/21 Farxiga 10 mg tablet (dapagliflozin) 10 mg PO DAILY #90 tabs 06/17/21 carvedilol 6.25 mg tablet 6.25 mg PO BID 11/24/21 cholecalciferol (vitamin D3) 50 mcg (2,000 unit) capsule 50 mcg PO DAILY 11/24/21 garlic 1,000 mg capsule 1,000 mg PO DAILY 11/24/21 omega-3 fatty acids 1,000 mg capsule 1,000 mg PO DAILY 11/24/21 insulin glargine 100 unit/mL (3 mL) subcutaneous pen 55 unit (0.55 mL) subcut QHS #18 mL 04/26/22 metformin 750 mg tablet,extended release 24 hr 750 mg PO BID #180 tabs 05/04/22 glimepiride 4 mg tablet 4 mg PO DAILY #90 tabs 05/17/22 insulin lispro 100 unit/mL subcutaneous pen (Humalog KwikPen (U-100) Insulin) 20 unit subcut DINNER 06/22/22 Hospital Course Operations None Procedures 2-D Echocardiogram and Stress test Summary of Care Provided Hospital Course: Patient is a 56-year-old male admitted 06/22/2022 due to chest pain. 1. Chest pain-ACS ruled out. Troponin negative. EKG without ST-T changes. Echocardiogram demonstrated an EF of 55%, bicuspid aortic valve, mild focal aortic valve calcification, stage I diastolic dysfunction. Nuclear stress test 2. Type 2 diabetes mellitus-continue home oral and insulin regimen. 3. Hypertension-stable, continue lisinopril, carvedilol. 4. Hyperlipidemia-continue statin. 5. Aortic stenosis-stable per echo. Patient seen and examined prior to discharge. Physical assessment as noted below. Patient is stable for discharge with follow up recommendations as noted above. This patient was seen by SANG Hannah under the supervision of Dr. Downing. Time spent examining patient, reviewing data and subsequent management of care: Physical Exam Const alert, oriented x3 and no apparent distress Orientation / Consciousness: awake, oriented to person, oriented to place and oriented to time HEENT normocephalic and moist oral mucous membranes Eyes PERRL, EOMs intact bilaterally and conjunctivae normal Neck no lymphadenopathy Resp normal respiratory effort and clear to auscultation bilaterally Cardio regular rate, regular rhythm and no murmurs Peripheral Pulses: pulses 2+ throughout GI normal to inspection, nondistended, normoactive bowel sounds, non-tender and non-distended Extremity normal to inspection Skin no rashes or lesions noted Lesions: no lesions Rashes: no rashes Trauma: no lacerations or abrasions Neuro CN's II-XII intact bilaterally, no focal motor deficits, no sensory deficits noted and deep tendon reflexes 2+ bilaterally Psych mental status grossly normal and affect normal Weight / BMI Weight Weight: 189 lb 13.088 oz Body Mass Index (BMI) 29.7 ABG / Lab / Microbiology Data Laboratory: Laboratory Results - last 24 hr 06/22/22 23:01: Troponin I High Sens 20 06/23/22 00:22: POC Glucose 172 H 06/23/22 05:55: POC Glucose 154 H 06/23/22 06:13: Triglycerides 114, Cholesterol 131, LDL Cholesterol 65, VLDL Cholesterol 23, HDL Cholesterol 43 Radiography Diagnostic Testing: Radiology Impression Echocardiogram 06/23/22 05:55 Interpretation Summary Normal LV size. Left ventricular systolic function is normal. The estimated ejection fraction is 55 %. Bicuspid aortic valve. Mild focal aortic valve calcification. Mean aortic valve gradient 20 mmHg. Stage 1 diastolic dysfunction. Compared to previous study, the left ventricular systolic function is the same.. Ordering Physician: Mac James Performed By: Erin Paula RCS D/C Instructions Discharge Diet: Low fat / Low cholesterol and Carb Control Diet Call your doctor if you observe: Shortness of breath, Dizziness and Chest pain Meaningful Use Info Meaningful Use Diagnoses (Choose all that apply): None applicable Discharge Plan Admission Admit Date/Time: 06/22/22 23:05 Primary Reason for Your Visit: Chest pain Attending Provider: Travis Jones Primary Care Provider: Brian Barillas Consulting Providers: Mac James Discharge Orders/Prescriptions Prescriptions: Continued rosuvastatin 20 mg tablet 20 ea PO DINNER Label Comments: TAKE 1 TABLET BY MOUTH ONCE DAILY lisinopril 40 mg tablet 40 ea PO DAILY Label Comments: TAKE 1 TABLET BY MOUTH ONCE DAILY carvedilol 6.25 mg tablet 6.25 mg PO BID garlic 1,000 mg capsule 1,000 mg PO DAILY omega-3 fatty acids 1,000 mg capsule 1,000 mg PO DAILY cholecalciferol (vitamin D3) 50 mcg (2,000 unit) capsule 50 mcg PO DAILY metformin 750 mg tablet extended release 24 hr 750 mg PO BID Qty: 180 1RF insulin lispro [Humalog KwikPen Insulin] 100 unit/mL insulin pen 20 unit subcut DINNER Rx Instructions: takes at dinner Farxiga 10 mg tablet 10 mg PO DAILY Qty: 90 3RF Rx Instructions: in the evening 6pm insulin glargine 100 unit/mL (3 mL) insulin pen 55 unit subcut QHS Qty: 18 3RF glimepiride 4 mg tablet 4 mg PO DAILY Qty: 90 1RF Referrals / Follow Up: Brian Barillas MD [Primary Care Provider] - In 1 Week Disposition Disposition (needs filled in before D/C Order can be placed): Home, Self Care
--- NOTE | 2022-06-23 16:26 | PN.HOSP_ITS ---
Documented by User: Saskia Fox NP, [employer] 06/23/22 16:33 Objective Data Objective Data Vital Signs: Vital Signs Temp Pulse Resp BP Pulse Ox O2 Del Method 97.7 F L 63 16 134/78 H 98 Room Air 06/23/22 10:40 06/23/22 14:37 06/23/22 10:40 06/23/22 10:40 06/23/22 10:40 06/23/22 14:00 Oxygen Delivery Method Room Air Weight: 189 lb 13.088 oz Body Mass Index (BMI) 29.7 Lab / Micro Data Labs: Laboratory Results - last 24 hr 06/22/22 23:01: Troponin I High Sens 20 06/23/22 00:22: POC Glucose 172 H 06/23/22 05:55: POC Glucose 154 H 06/23/22 06:13: Triglycerides 114, Cholesterol 131, LDL Cholesterol 65, VLDL Cholesterol 23, HDL Cholesterol 43 Radiography Diagnostic Testing: Radiology Impression Echocardiogram 06/23/22 05:55 Interpretation Summary Normal LV size. Left ventricular systolic function is normal. The estimated ejection fraction is 55 %. Bicuspid aortic valve. Mild focal aortic valve calcification. Mean aortic valve gradient 20 mmHg. Stage 1 diastolic dysfunction. Compared to previous study, the left ventricular systolic function is the same.. Ordering Physician: Mac James Performed By: Erin Paula RCS Physical Exam Const alert, oriented x3 and no apparent distress Orientation / Consciousness: awake, oriented to person, oriented to place and oriented to time HEENT normocephalic and moist oral mucous membranes Eyes PERRL, EOMs intact bilaterally and conjunctivae normal Neck no lymphadenopathy Resp normal respiratory effort and clear to auscultation bilaterally Cardio regular rate, regular rhythm and no murmurs Peripheral Pulses: pulses 2+ throughout GI normal to inspection, nondistended, normoactive bowel sounds, non-tender and non-distended Extremity normal to inspection Skin no rashes or lesions noted Lesions: no lesions Rashes: no rashes Trauma: no lacerations or abrasions Neuro CN's II-XII intact bilaterally, no focal motor deficits, no sensory deficits noted and deep tendon reflexes 2+ bilaterally Psych mental status grossly normal and affect normal Assessment & Plan Assessment/Plan (1) Chest pain: PLAN: Plan Patient is a 56-year-old male admitted 06/22/2022 due to chest pain. 1. Chest pain/abnormal stress test-Troponin negative.Echocardiogram demonstrated an EF of 55%, bicuspid aortic valve, mild focal aortic valve calcification, stage I diastolic dysfunction. Nuclear stress test with myocardial perfusion changes concerning for area of stress-induced ischemia involving portions of the septal apical segments. Cardiology consult. Continue aspirin, statin, beta-nick. 2. Type 2 diabetes mellitus-continue home oral and insulin regimen. Hemoglobin A1c 8.5%. 3. Hypertension-stable, continue lisinopril, carvedilol. 4. Hyperlipidemia-continue statin. 5. Aortic stenosis-stable per echo. DVT prophylaxis-Lovenox subcu This patient was seen by JAUN HannahC under the supervision of Dr. Jones. Time spent examining patient, reviewing data and subsequent management of care: 16 minutes Documented by User: Dr. Travis Jones MD 06/23/22 16:36 Assessment & Plan Assessment/Plan (1) Chest pain: Charges/Coding Addendum Addendum: Addendum: Dr. Jones I personally examined the patient and reviewed the chart. I agree with the above. 56-year-old male presents to the hospital with chest pain. Troponins and EKGs were unremarkable however he did undergo a echo today which was normal but a stress test was mildly abnormal. Therefore we will keep him overnight and consult cardiology for evaluation for possible cath. Clinical time spent in all aspects of patient care: 20 minutes Visit Charges OBSV E&M: 16482 Subsequent observation care L3
[2022-06-23] MEDS: Empagliflozin 25 MG Tablet PO (17:05)
[2022-06-23 17:25] LABS: Bedside Glucose 158 mg/dL (74-106)
--- NOTE | 2022-06-23 18:13 | PCM.CONS.C ---
Assessment & Plan Assessment/Plan (1) Chest pain: PLAN: He does present with chest discomfort which is somewhat atypical but has an abnormal stress test with EKG changes concomitant. Due to the evidence of ischemia in the anteroseptal distribution I would recommend that we proceed with a left heart catheterization. The risk benefits alternatives have been explained to him he understands and agrees to proceed. Depending on the findings further recommendations will be made. (2) Bicuspid aortic valve: PLAN: He does have evidence of bicuspid aortic valve by clinical evaluation as well as his echocardiogram. I would recommend that we continue to follow the above. It appears to be in the [id number] range at this particular time. He may need a CAT scan at some point to look at his ascending aorta. (3) High blood pressure: QUALIFIERS: Hypertension type: primary hypertension Qualified Code(s): I10 - Essential (primary) hypertension PLAN: His blood pressure appears to be under good control at this particular time and I will not suggest that we make any major changes. Thank you for allowing me to participate in the care of your patient. Please don't hesitate to call if any issues arise. HPI Consult Data Date of Consult: 06/23/22 HPI Narrative HPI Narrative: LARISSA MADERA, is a 56 M who presents to the emergency room for Left arm and neck discomfort as well as chest discomfort which was noticed after he was mowing his lawn. He went back inside and continued to feel unwell and so his decided to bring him to the emergency room. In the emergency room he was noted to have a normal blood pressure and normal cardiac enzymes and was scheduled for and underwent an echocardiogram as well as a stress test. The stress test demonstrated an area of apical septal ischemia and cardiology was called for further evaluation and management. He says that he has been told that he had a heart murmur in the past after he developed COVID and was examined. He thinks he had an echocardiogram performed but he was not 100% sure. He has had mild shortness of breath but no dizziness or diaphoresis no near syncope or syncope. He does have a history of diabetes mellitus as well as hypertension. [facility] Medical History Diabetes Heart valve problem High blood pressure High cholesterol History of aortic stenosis Microalbuminuria Home Medications lisinopril 40 mg tablet 40 ea PO DAILY 06/09/21 [History Last Taken Unknown] rosuvastatin 20 mg tablet 20 ea PO DINNER 06/09/21 [History Last Taken Unknown] Farxiga 10 mg tablet (dapagliflozin) 10 mg PO DAILY #90 tabs 06/17/21 [Rx Last Taken Unknown] carvedilol 6.25 mg tablet 6.25 mg PO BID 11/24/21 [History Last Taken Unknown] cholecalciferol (vitamin D3) 50 mcg (2,000 unit) capsule 50 mcg PO DAILY 11/24/21 [History Last Taken Unknown] garlic 1,000 mg capsule 1,000 mg PO DAILY 11/24/21 [History Last Taken Unknown] omega-3 fatty acids 1,000 mg capsule 1,000 mg PO DAILY 11/24/21 [History Last Taken Unknown] insulin glargine 100 unit/mL (3 mL) subcutaneous pen 55 unit (0.55 mL) subcut QHS #18 mL 04/26/22 [Rx Last Taken Unknown] metformin 750 mg tablet,extended release 24 hr 750 mg PO BID #180 tabs 05/04/22 [Rx Last Taken Unknown] glimepiride 4 mg tablet 4 mg PO DAILY #90 tabs 05/17/22 [Rx Last Taken Unknown] insulin lispro 100 unit/mL subcutaneous pen (Humalog KwikPen (U-100) Insulin) 20 unit subcut DINNER 06/22/22 [History Last Taken Unknown] Allergy/AdvReac Type Severity Reaction Status Date / Time No Known Allergies Allergy Verified 06/22/22 17:18 Family History Other CVA (cerebral vascular accident) Colon cancer Diabetes Heart disease High cholesterol Hypertension Kidney disease Myocardial infarction Surgical History Hx of tonsillectomy Social History Smoking Status: Never smoker alcohol intake: current alcohol intake frequency: holidays/special occasions only substance use type: does not use what type of physical activity do you participate in: none ROS Constitutional Constitutional: Denies fever(s) or weight loss Eyes Eyes: Reports systems reviewed and no addt'l complaints, except as documented ENT HEENT: Reports systems reviewed and no addt'l complaints, except as documented Cardiovascular Cardiovascular: Reports chest pain with activity; Denies chest pain at rest, dyspnea at rest, dyspnea on exertion, edema, palpitations or paroxysmal nocturnal dyspnea Respiratory/Chest Respiratory/Chest: Reports shortness of breath with exertion; Denies dyspnea on exertion, productive cough or shortness of breath at rest Gastrointestinal Gastrointestinal: Denies change in bowel habits, nausea, vomiting or weight changes Genitourinary Genitourinary: Denies difficulty urinating Musculoskeletal Musculoskeletal: Denies joint stiffness or muscle weakness Integumentary Integumentary: Denies lesions Neurologic Neurologic: Denies dizziness or syncope Psychiatric Psychiatric: Denies anxiety Endocrine Endocrinology: Denies excessive sweating or fatigue Hematologic/Lymphatic Hematologic/Lymphatic: Denies anemia Allergic/Immunologic Allergic/Immunologic: Denies seasonal rhinorrhea Physical Exam Const alert, oriented x3 and no apparent distress General Appearance: cooperative HEENT hearing grossly normal bilaterally Head and Scalp: atraumatic Eyes EOMs intact bilaterally Neck General: normal visual inspection Chest inspection of chest normal and palpation of chest normal Resp normal respiratory effort Auscultation: clear to auscultation bilaterally Cardio regular rate, regular rhythm, S1 normal heart sound and S2 normal heart sound Jugular Venous Distention: JVD Heart Sounds: murmur systolic III/ harsh left sternal border and sternal notch to carotid arteries GI normal to inspection, nondistended, normoactive bowel sounds Extremity normal capillary refill and no pedal edema Peripheral Pulses: Yes pulses 2+ throughout and femoral pulses present Skin no rashes or lesions noted Neuro oriented x3 and CN's II-XII intact bilaterally Psych Appearance: grossly normal and appropriate Risk Stratification Risk Stratification Applicable: Yes Age >/= 65: No >/= 3 CAD Risk Factors (HTN, HLD, DM, family hx of CAD, or current smoker): No Aspirin Use in the Past 7 Days: No Severe Angina (>/= episodes in 24 hours): No EKG ST Changes >/= 0.5mm: No Positive Cardiac Marker: No HOANG Risk Stratification Score: 0 HOANG % Risk: 5% Risk Objective Data Vital Signs: Vital Signs Temp Pulse Resp BP Pulse Ox O2 Del Method 97.5 F L 60 16 122/71 H 98 Room Air 06/23/22 16:40 06/23/22 16:40 06/23/22 16:40 06/23/22 16:40 06/23/22 16:40 06/23/22 16:40 Oxygen Delivery Method Room Air Weight: 189 lb 13.088 oz Body Mass Index (BMI) 29.7 Lab / Micro Data Labs: Laboratory Results - last 24 hr 06/22/22 23:01: Troponin I High Sens 20 06/23/22 00:22: POC Glucose 172 H 06/23/22 05:55: POC Glucose 154 H 06/23/22 06:13: Triglycerides 114, Cholesterol 131, LDL Cholesterol 65, VLDL Cholesterol 23, HDL Cholesterol 43 06/23/22 17:04: POC Glucose 158 H Cardiology Labs/Tests 06/23/22 06:13: Triglycerides 114, Cholesterol 131, LDL Cholesterol 65, VLDL Cholesterol 23, HDL Cholesterol 43 Rhythm: EKG: ECHO: Stress Test: Cardiac Cath: PCI: CT Surgery: Holter monitor: EPS: PPM: CXR: Chest CT Scan: Radiography Diagnostic Testing: Radiology Impression Echocardiogram 06/23/22 05:55 Interpretation Summary Normal LV size. Left ventricular systolic function is normal. The estimated ejection fraction is 55 %. Bicuspid aortic valve. Mild focal aortic valve calcification. Mean aortic valve gradient 20 mmHg. Stage 1 diastolic dysfunction. Compared to previous study, the left ventricular systolic function is the same.. Ordering Physician: Mac James Performed By: Erin Paula RCS
[2022-06-23] MEDS: Atorvastatin Calcium 40 MG Tablet PO (23:02)
[2022-06-23] MEDS: 0.9% Saline Lock 10 ML Syringe IV (23:02)
[2022-06-23 23:30] LABS: Bedside Glucose 169 mg/dL (74-106)
[2022-06-24] VITALS (12 sets, daily range): BP systolic 92–133; BP diastolic 53–74; PULSE 56–71; RESP 12–16; TEMP 36.2–36.5; O2SAT 93–100
--- NOTE | 2022-06-24 05:55 | EKG12_ITS ---
Test Reason : am ekg Blood Pressure : / mmHG Vent. Rate : 065 BPM Atrial Rate : 065 BPM P-R Int : 182 ms QRS Dur : 090 ms QT Int : 402 ms P-R-T Axes : 017 007 -01 degrees QTc Int : 418 ms Normal sinus rhythm Normal ECG Confirmed by SUSANNA SMITH, YURY ([id number]), video news editor KVNG FIGUEROA ([id number]) on 06/25/2022 9:33:35 AM Referred By: Karen Confirmed By:YURY MULLINS MD
[2022-06-24] MEDS: Aspirin E.C. 81 MG Tablet PO (06:07)
[2022-06-24] MEDS: Lisinopril 40 MG Tablet PO (06:07)
[2022-06-24] MEDS: Carvedilol 6.25 MG Tablet PO (06:07)
[2022-06-24 06:41] LABS: Absolute Lymphocyte Count 1.69 X10^3/uL (0.83-4.51); Absolute Neutrophil Count 3.2 X10^3/uL (2.0-7.7); Basophil# 0.04 X10^3/uL; Basophil% 0.7 % (0-1); Eosinophil# 0.13 X10^3/uL; Eosinophils% 2.3 % (0-5); Hematocrit 42.7 % (40-54); Hemoglobin 14.4 g/dL (13.0-16.5); Lymphocyte # 1.69 X10^3/ul (0.83-4.51); Lymphocyte % 30.2 % (19-41); Mean Corp Hgb Conc 33.7 g/dL (32-36); Mean Corpuscular Hgb 29.6 pg (27.0-32.0); Mean Corpuscular Volume 87.9 fL (80-94); Mean Platelet Vol. 9.1 fl (6.2-12.0); Monocyte# 0.52 X10^3/uL; Monocyte% 9.3 % (0-10); NRBC Flagged by Analyzer 0 % (0-5); Neutrophil # 3.19 X10^3/uL (2.7-7.7); Platelet Count 169 K/mm3 (150-450); RBC Distribution Width CV 12.6 % (11.6-14.6); RBC Distribution Width SD 40.1 fl (35.1-43.9); Red Blood Count 4.86 M/mm3 (4.6-6.2); White Blood Count 5.6 K/mm3 (4.4-11.0)
[2022-06-24 06:53] LABS: Prothrombin Time (Protime)PT. 13.3 SECONDS (11.7-14.9)
[2022-06-24 07:15] LABS: Anion Gap 10 (5-15); BUN 21 mg/dL (7-18); BUN/Creat Ratio 18.9 RATIO (10-20); Calcium,Total 9.7 mg/dL (8.5-10.1); Chloride 103 mmol/L (98-107); Creatinine, Serum 1.11 mg/dL (0.70-1.30); EST Glomerular Filtration Rate 73 mL/min (>60); Est Glom Filt Rate - Afr Amer 88 mL/min (>60); Estimated Creatinine Clearance 69.47 ml/min; Glucose 174 mg/dL (74-106); Potassium 4.5 mmol/L (3.5-5.1); Sodium Level 137 mmol/L (136-145)
[2022-06-24 07:20] LABS: Bedside Glucose 173 mg/dL (74-106)
--- NOTE | 2022-06-24 07:28 | NURSING ---
Report called to Reinier, in lab nurse at this time.
[2022-06-24 08:35] LABS: Bedside Glucose 173 mg/dL (74-106)
--- NOTE | 2022-06-24 09:02 | PN.CARD_ITS ---
Subjective Subjective The patient was seen and evaluated and underwent cardiac catheterization today Objective Data Vital Signs: Vital Signs Temp Pulse Resp BP Pulse Ox O2 Del Method 97.7 F L 63 16 112/65 93 Room Air 06/24/22 06:08 06/24/22 07:23 06/24/22 06:08 06/24/22 06:08 06/24/22 07:14 06/24/22 07:14 Oxygen Delivery Method Room Air Weight: 189 lb 13.088 oz Body Mass Index (BMI) 29.7 Lab / Micro Data Result Diagrams: 06/24/22 06:25 06/24/22 06:25 Labs: Laboratory Results - last 24 hr 06/23/22 11:15: POC Glucose 173 H 06/23/22 17:04: POC Glucose 158 H 06/23/22 22:59: POC Glucose 169 H 06/24/22 06:12: POC Glucose 173 H 06/24/22 06:25: WBC 5.6, RBC 4.86, Hgb 14.4, Hct 42.7, MCV 87.9, MCH 29.6, MCHC 33.7, RDW Std Deviation 40.1, RDW Coeff of [place]afne 12.6, Plt Count 169, MPV 9.1, Immature Gran % (Auto) 0.500, Neut % (Auto) 57.0, Lymph % (Auto) 30.2, [place] % (Auto) 9.3, Eos % (Auto) 2.3, Baso % (Auto) 0.7, Absolute Neuts (auto) 3.2, Absolute Lymphs (auto) 1.69, Nucleated RBC % 0 06/24/22 06:25: PT 13.3, INR 1.0 06/24/22 06:25: Sodium 137, Potassium 4.5, Chloride 103, Carbon Dioxide 24.0, Anion Gap 10, BUN 21 H, Creatinine 1.11, Estim Creat Clear Calc 69.47, Est GFR (MDRD) Af Amer 88, Est GFR (MDRD) Non-Af 73, BUN/Creatinine Ratio 18.9, Glucose 174 H, Calcium 9.7 Cardiology Labs/Tests 06/24/22 06:25: WBC 5.6, RBC 4.86, Hgb 14.4, Hct 42.7, MCV 87.9, MCH 29.6, MCHC 33.7, Plt Count 169, MPV 9.1, Immature Gran % (Auto) 0.500, Neut % (Auto) 57.0, Lymph % (Auto) 30.2, [place] % (Auto) 9.3, Eos % (Auto) 2.3, Baso % (Auto) 0.7, Absolute Neuts (auto) 3.2, Nucleated RBC % 0 06/24/22 06:25: PT 13.3, INR 1.0 06/24/22 06:25: Sodium 137, Potassium 4.5, Chloride 103, Carbon Dioxide 24.0, Anion Gap 10, BUN 21 H, Creatinine 1.11, Est GFR (MDRD) Af Amer 88, Est GFR (MDRD) Non-Af 73, BUN/Creatinine Ratio 18.9, Glucose 174 H, Calcium 9.7 Rhythm: EKG: ECHO: Stress Test: Cardiac Cath: PCI: CT Surgery: Holter monitor: EPS: PPM: CXR: Chest CT Scan: Radiography Diagnostic Testing: Radiology Impression Echocardiogram 06/23/22 05:55 Interpretation Summary Normal LV size. Left ventricular systolic function is normal. The estimated ejection fraction is 55 %. Bicuspid aortic valve. Mild focal aortic valve calcification. Mean aortic valve gradient 20 mmHg. Stage 1 diastolic dysfunction. Compared to previous study, the left ventricular systolic function is the same.. Ordering Physician: Mac James Performed By: Erin Paula RCS Physical Exam Const alert, oriented x3 and no apparent distress General Appearance: cooperative HEENT hearing grossly normal bilaterally Head and Scalp: atraumatic Eyes EOMs intact bilaterally Neck General: normal visual inspection Chest inspection of chest normal and palpation of chest normal Resp normal respiratory effort Auscultation: clear to auscultation bilaterally Cardio regular rate, regular rhythm, S1 normal heart sound and S2 normal heart sound Jugular Venous Distention: JVD Heart Sounds: murmur systolic III/ harsh left sternal border and sternal notch to carotid arteries GI normal to inspection, nondistended, normoactive bowel sounds Extremity normal capillary refill and no pedal edema Peripheral Pulses: Yes pulses 2+ throughout and femoral pulses present Skin no rashes or lesions noted Neuro oriented x3 and CN's II-XII intact bilaterally Psych Appearance: grossly normal and appropriate Assessment & Plan Assessment/Plan (1) Chest pain: PLAN: He does present with chest discomfort which is somewhat atypical but has an abnormal stress test with EKG changes concomitant. Due to the evidence of ischemia in the anteroseptal distribution, the patient underwent a cardiac catheterization which demonstrated moderate diffuse disease with no high-grade stenosis. Based on the above angiographic findings the patient will be treated with aggressive medical therapy. (2) Bicuspid aortic valve: PLAN: He does have evidence of bicuspid aortic valve by clinical evaluation as well as his echocardiogram. I would recommend that we continue to follow the above. It appears to be in the [id number] range at this particular time. He may need a CAT scan at some point to look at his ascending aorta. Ascending aortogram demonstrated evidence of a dilated ascending aortic root. (3) High blood pressure: QUALIFIERS: Hypertension type: primary hypertension Qualified Code(s): I10 - Essential (primary) hypertension PLAN: His blood pressure appears to be under good control at this particular time and I will not suggest that we make any major changes. Thank you for allowing me to participate in the care of your patient. Please don't hesitate to call if any issues arise.
--- NOTE | 2022-06-24 09:04 | CASEMGMT ---
According to the [facility] website, the following are in-network tertiary facilities: [facility], [facility], [facility], and [facility]. Carlos LUNDBERG CM
--- NOTE | 2022-06-24 09:32 | DCINST_ITS ---
Discharge Instructions Diet Discharge Diet: Low fat / Low cholesterol and Carb Control Diet Dressing / Incision Call your doctor if you observe: Fever of 101 or Higher, Shortness of breath, Dizziness, Fainting spells, Swelling in the ankles, Chest pain and Increased palpitations (irregular heartbeat) Follow Up Care Test Results: Test results from this visit will be discussed in further detail at your follow- up appointment, if applicable. Discharge Plan Admission Admit Date/Time: 06/22/22 23:05 Primary Reason for Your Visit: Chest pain Attending Provider: Travis Jones Primary Care Provider: Brian Barillas Consulting Providers: Mac James ; Kris Rose Discharge Orders/Prescriptions Prescriptions: Continued rosuvastatin 20 mg tablet 20 ea PO DINNER Label Comments: TAKE 1 TABLET BY MOUTH ONCE DAILY lisinopril 40 mg tablet 40 ea PO DAILY Label Comments: TAKE 1 TABLET BY MOUTH ONCE DAILY carvedilol 6.25 mg tablet 6.25 mg PO BID garlic 1,000 mg capsule 1,000 mg PO DAILY omega-3 fatty acids 1,000 mg capsule 1,000 mg PO DAILY cholecalciferol (vitamin D3) 50 mcg (2,000 unit) capsule 50 mcg PO DAILY metformin 750 mg tablet extended release 24 hr 750 mg PO BID Qty: 180 1RF insulin lispro [Humalog KwikPen Insulin] 100 unit/mL insulin pen 20 unit subcut DINNER Rx Instructions: takes at dinner Farxiga 10 mg tablet 10 mg PO DAILY Qty: 90 3RF Rx Instructions: in the evening 6pm insulin glargine 100 unit/mL (3 mL) insulin pen 55 unit subcut QHS Qty: 18 3RF glimepiride 4 mg tablet 4 mg PO DAILY Qty: 90 1RF Referrals / Follow Up: Kris Rose MD [Med Staff - Active Staff] - (In 3-4 months, please call office to schedule) Brian Barillas MD [Primary Care Provider] - In 1 Week Disposition Disposition (needs filled in before D/C Order can be placed): Home, Self Care
[2022-06-24] MEDS: 0.9% Normal Saline 1,000 ML 75 ML IV (09:45)
[2022-06-24] MEDS: Omega-3 Acid Ethyl Esters 1 GM Capsule PO (09:46)
[2022-06-24] MEDS: Cholecalciferol (VIT D3) 25 MCG TABLET (1,000 UNITS) 50 MCG PO (09:46)
--- NOTE | 2022-06-24 10:48 | DS.PCM_ITS ---
Providers Date of Admission: 06/22/22 Primary Care Physician: Dr. Brian Barillas MD Consultations 06/23/22 16:44 Consult: Cardiology Routine Consulting Provider: Kris Rose Reason for Consult: ABNORMAL STRESS TEST EMERGENT Consult: No MD Notified: Yes Date Notified: 06/23/22 Time Notified: 16:44 Method of Notification: RICK ROBBINS Reason For Visit: CHEST PAIN Diagnosis Discharge Diagnosis (1) Chest pain: Status: Acute Code(s): R07.9 - Chest pain, unspecified (2) Bicuspid aortic valve: Status: Acute Code(s): Q23.1 - Congenital insufficiency of aortic valve (3) High blood pressure: Status: Chronic Code(s): I10 - Essential (primary) hypertension Qualifiers: Hypertension type: primary hypertension Qualified Code(s): I10 - Ess ential (primary) hypertension Plan Patient is a 56-year-old male admitted 06/22/2022 due to chest pain. 1. Chest pain/abnormal stress test-Troponin negative.Echocardiogram demonstrated an EF of 55%, bicuspid aortic valve, mild focal aortic valve calcification, stage I diastolic dysfunction. Nuclear stress test with myocardial perfusion changes concerning for area of stress-induced ischemia involving portions of the septal apical segments. Cardiology consult. Continue aspirin, statin, beta-nick. 2. Type 2 diabetes mellitus-continue home oral and insulin regimen. Hemoglobin A1c 8.5%. 3. Hypertension-stable, continue lisinopril, carvedilol. 4. Hyperlipidemia-continue statin. 5. Aortic stenosis-stable per echo. DVT prophylaxis-Lovenox subcu This patient was seen by SANG Hannah under the supervision of Dr. Jones. Time spent examining patient, reviewing data and subsequent management of care: 16 minutes Medications at Discharge Home Medications lisinopril 40 mg tablet 40 ea PO DAILY 06/09/21 rosuvastatin 20 mg tablet 20 ea PO DINNER 06/09/21 Farxiga 10 mg tablet (dapagliflozin) 10 mg PO DAILY #90 tabs 06/17/21 carvedilol 6.25 mg tablet 6.25 mg PO BID 11/24/21 cholecalciferol (vitamin D3) 50 mcg (2,000 unit) capsule 50 mcg PO DAILY 11/24/21 garlic 1,000 mg capsule 1,000 mg PO DAILY 11/24/21 omega-3 fatty acids 1,000 mg capsule 1,000 mg PO DAILY 11/24/21 insulin glargine 100 unit/mL (3 mL) subcutaneous pen 55 unit (0.55 mL) subcut QHS #18 mL 04/26/22 metformin 750 mg tablet,extended release 24 hr 750 mg PO BID #180 tabs 05/04/22 glimepiride 4 mg tablet 4 mg PO DAILY #90 tabs 05/17/22 insulin lispro 100 unit/mL subcutaneous pen (Humalog KwikPen (U-100) Insulin) 20 unit subcut DINNER 06/22/22 Hospital Course Operations None Procedures 2-D Echocardiogram, Cardiac catheterization and Nuclear stress test Summary of Care Provided Minutes Spent on Discharge: 45 Hospital Course: Per HPI: LARISSA MADERA, is a 56 M with a significant history of aortic stenosis; hypertension; diabetes mellitus who presented to emergency department with chest pain that started while she was using a push mower to mow his yard.? Reportedly he went uphill tomorrow and developed left-sided chest pain.? He described the pain as sharp.? The pain was excruciating.? The pain radiated to his left, the left side of his neck, and the left side of his jaw.? The pain also radiated to below his left shoulder blade.? When he rested the pain improved.? He then went back to complete the rest of the mowing.? Associated with symptom was shortness of breath and multiple episodes of burping.? Within about 1 hour he was at the emergency department and was evaluated.? His initial troponin was 9.? Follow-up troponin was 23.? An offer was made for patient to stay at hospital.? However patient elected to go home with a plan to see his cardiology the following morning. Patient then left the emergency department to go home.? While at the parking lot of the hospital patient called his cardiology's office.? Patient was advised to come back to the emergency department for further testing. Of note patient was found to have aortic stenosis when he had COVID and follows up with cardiology. Hospital Course: 1. Chest pain/HTN/HLD/aortic stenosis?56-year-old male presented to the hospital with chest pain on his left side. It occurred with some activity so he was brought into the hospital for rule out. Echo with an EF of 55% and bicuspid aortic valve with mild aortic stenosis. Stage I diastolic dysfunction. Stress test did show some stress-induced ischemia in the septal and septal apical segments therefore cardiology was consulted and they proceed with a heart cath this morning. On heart cath he was found to have mild to moderate coronary artery disease that did not require any stenting at this time. They recommended home with his home medications at this time. They will follow-up with him in about 3 to 4 months from now and make adjustments as necessary. I discussed with him the plan for discharge today he expressed understanding of the going home and would to go home today. Physical Exam Narrative General: Alert, Oriented x3, Cooperative, No apparent distress HEENT: Atraumatic, PERRLA, EOMI, Normocephalic Oral: Moist Mucosa Neck: Supple, No JVD Lungs: Clear to auscultation, Normal air movement, No rhonchi, No wheeze, No rales Cardiovascular: Regular rate, Regular Rhythm, Normal S1, Normal S2, No murmurs Abdomen: Soft, Non Tender, Non-Distended, No Hepato-splenomegaly Extremities: No edema, Capillary Refill Less than 3 Seconds Skin: No rashes, No breakdown Musculoskeletal: No Tenderness to Palpation of Joints or Extremities Neurological: Cranial nerves II-XII grossly intact, Motor Exam 5/5 strength throughout, Sensory exam intact to light touch and pain Psych/Mental Status: Normal Affect, Appropriate Weight / BMI Weight Weight: 189 lb 13.088 oz Body Mass Index (BMI) 29.7 ABG / Lab / Microbiology Data Result Diagrams: 06/24/22 06:25 06/24/22 06:25 Laboratory: Laboratory Results - last 24 hr 06/23/22 11:15: POC Glucose 173 H 06/23/22 17:04: POC Glucose 158 H 06/23/22 22:59: POC Glucose 169 H 06/24/22 06:12: POC Glucose 173 H 06/24/22 06:25: WBC 5.6, RBC 4.86, Hgb 14.4, Hct 42.7, MCV 87.9, MCH 29.6, MCHC 33.7, RDW Std Deviation 40.1, RDW Coeff of [place]afne 12.6, Plt Count 169, MPV 9.1, Immature Gran % (Auto) 0.500, Neut % (Auto) 57.0, Lymph % (Auto) 30.2, [place] % (Auto) 9.3, Eos % (Auto) 2.3, Baso % (Auto) 0.7, Absolute Neuts (auto) 3.2, Absolute Lymphs (auto) 1.69, Nucleated RBC % 0 06/24/22 06:25: PT 13.3, INR 1.0 06/24/22 06:25: Sodium 137, Potassium 4.5, Chloride 103, Carbon Dioxide 24.0, Anion Gap 10, BUN 21 H, Creatinine 1.11, Estim Creat Clear Calc 69.47, Est GFR (MDRD) Af Amer 88, Est GFR (MDRD) Non-Af 73, BUN/Creatinine Ratio 18.9, Glucose 174 H, Calcium 9.7 Radiography Diagnostic Testing: Radiology Impression Echocardiogram 06/23/22 05:55 Interpretation Summary Normal LV size. Left ventricular systolic function is normal. The estimated ejection fraction is 55 %. Bicuspid aortic valve. Mild focal aortic valve calcification. Mean aortic valve gradient 20 mmHg. Stage 1 diastolic dysfunction. Compared to previous study, the left ventricular systolic function is the same.. Ordering Physician: Mac James Performed By: Erin Paula RCS D/C Instructions Discharge Diet: Low fat / Low cholesterol and Carb Control Diet Call your doctor if you observe: Fever of 101 or Higher, Shortness of breath, Dizziness, Fainting spells, Swelling in the ankles, Chest pain and Increased palpitations (irregular heartbeat) Meaningful Use Info Meaningful Use Diagnoses (Choose all that apply): None applicable Discharge Plan Admission Admit Date/Time: 06/22/22 23:05 Primary Reason for Your Visit: Chest pain Attending Provider: Travis Jones Primary Care Provider: Brian Barillas Consulting Providers: Mac James ; Kris Rose Discharge Orders/Prescriptions Prescriptions: Continued rosuvastatin 20 mg tablet 20 ea PO DINNER Label Comments: TAKE 1 TABLET BY MOUTH ONCE DAILY lisinopril 40 mg tablet 40 ea PO DAILY Label Comments: TAKE 1 TABLET BY MOUTH ONCE DAILY carvedilol 6.25 mg tablet 6.25 mg PO BID garlic 1,000 mg capsule 1,000 mg PO DAILY omega-3 fatty acids 1,000 mg capsule 1,000 mg PO DAILY cholecalciferol (vitamin D3) 50 mcg (2,000 unit) capsule 50 mcg PO DAILY metformin 750 mg tablet extended release 24 hr 750 mg PO BID Qty: 180 1RF insulin lispro [Humalog KwikPen Insulin] 100 unit/mL insulin pen 20 unit subcut DINNER Rx Instructions: takes at dinner Farxiga 10 mg tablet 10 mg PO DAILY Qty: 90 3RF Rx Instructions: in the evening 6pm insulin glargine 100 unit/mL (3 mL) insulin pen 55 unit subcut QHS Qty: 18 3RF glimepiride 4 mg tablet 4 mg PO DAILY Qty: 90 1RF Referrals / Follow Up: Kris Rose MD [Med Staff - Active Staff] - (In 3-4 months, please call office to schedule) Brian Barillas MD [Primary Care Provider] - In 1 Week Disposition Disposition (needs filled in before D/C Order can be placed): Home, Self Care Charges/Coding Visit Charges OBSV E&M: 98591 Observation care discharge
--- NOTE | 2022-06-24 10:52 | PHA.DC.MR ---
Pharmacy Service has performed discharge medication reconciliation for this patient. No new medications at time of discharge review. Medications reviewed are from previously reported home medications. Home Medications lisinopril 40 mg tablet 40 ea PO DAILY 06/09/21 rosuvastatin 20 mg tablet 20 ea PO DINNER 06/09/21 Farxiga 10 mg tablet (dapagliflozin) 10 mg PO DAILY #90 tabs 06/17/21 carvedilol 6.25 mg tablet 6.25 mg PO BID 11/24/21 cholecalciferol (vitamin D3) 50 mcg (2,000 unit) capsule 50 mcg PO DAILY 11/24/21 garlic 1,000 mg capsule 1,000 mg PO DAILY 11/24/21 omega-3 fatty acids 1,000 mg capsule 1,000 mg PO DAILY 11/24/21 insulin glargine 100 unit/mL (3 mL) subcutaneous pen 55 unit (0.55 mL) subcut QHS #18 mL 04/26/22 metformin 750 mg tablet,extended release 24 hr 750 mg PO BID #180 tabs 05/04/22 glimepiride 4 mg tablet 4 mg PO DAILY #90 tabs 05/17/22 insulin lispro 100 unit/mL subcutaneous pen (Humalog KwikPen (U-100) Insulin) 20 unit subcut DINNER 06/22/22 The patient's discharge medication list was reviewed for discrepancies and discrepancies were resolved.
[2022-06-24 11:21] LABS: Bedside Glucose 159 mg/dL (74-106)
--- NOTE | 2022-06-29 07:23 | CL.D_ITS ---
Patient Name: LARISSA MADERA Study Date: 06/24/2022 Performing: Kris Rose MD Ht: 67 inches 170.18 cm : 1965 Wt: 190.1 lbs 86.1 kg Age: 56 Gender: male BSA: 1.98 PROCEDURE(S) PERFORMED DC01-(88021)LHC/COR/LV CLINICAL PROFILE AND INDICATIONS Indications: Valvular Disease, Suspected CAD Heart Failure: None Stress/Imaging Date: 06/23/22Stress Test with SPECT MPI: Positive Low Risk CAD Presentations: Stable angina. CONCLUSIONS Moderate coronary artery disease with calcification noted of the right and left coronary arteries and a calcified bicuspid aortic valve. RECOMMENDATIONS Medical therapy DESCRIPTION OF PROCEDURE The patient arrived to the procedure lab. The risks and benefits of the procedure as well as a full description of our services here and current unavailability of surgical backup were fully explained to the patient and/or their significant other prior to the catheterization. The Timeout was completed, verifying the correct patient and procedure. The patient's procedural site was prepped and draped in the usual fashion. Local anesthetic was given subcutaneously to right radial region with Lidocaine 2%. Using a modified Seldinger technique, arterial access was obtained via the right radial artery, a 6Fr sheath was inserted. Right Coronary Artery selective angiography was performed in multiple views using a 5 Fr. 4.0 [place] catheter. Left Coronary Artery selective angiography was performed in multiple views using a 5 Fr. JL3.5 catheter. Left Ventriculography was performed in SUAREZ projection using a 5 Fr. Pig[place] catheter. LV to AO pullback pressures were then recorded.The arterial sheath was pulled and a TR Band was applied for hemostasis CORONARY ANGIOGRAPHY DOMINANCE: Right Dominant LEFT HEART ASSESSMENT Left Ventricular Ejection Fraction: by LV Gram 55 % Normal LV wall motion Normal Left Ventricular systolic function LEFT MAIN: Mild calcification, Angiographically normal LEFT ANTERIOR DESCENDING ARTERY: Moderate calcification MID LAD: Moderate luminal irregularities up to 50% CIRCUMFLEX ARTERY: Mild luminal irregularities less than 30% RAMUS: No significant disease noted RIGHT CORONARY ARTERY: Moderate luminal irregularities up to 50% MID RCA: Moderate calcification VALVE FINDINGS: Aortic Valve Calcification - mild Bicuspid Aortic Valve AORTIC ROOT: Dilated COMPLICATIONS No Complications PROCEDURE MEDICATIONS Fentanyl 50 mcg IV Versed 1 mg IV Oxygen: 2 L/min via nasal cannula Heparin given IA 06/24/2022 08:39:49 Verapamil 2.5mg, Ntg 100mcgs, 3000 units of Heparin given IA 06/24/2022 08:39:49 SUMMARY OF HEMODYNAMIC DATA Time AIR REST ECG 08:27:38 AO 88/62 (74) SA 08:43:56 LV 135/6, 13 08:57:30 LV 133/6, 11 08:57:36 LV 129/7, 11 08:58:20 LV 133/9, 15 08:58:26 LVp 110/61, 64 08:58:40 AOp 101/59 (77) 08:58:45 AIR REST 09:11:24 Signed By Kris Rose MD On 06/29/2022 07:22:58 Kris Rose MD
== END 2022-06-24 09:33 | disposition home or self-care (01) ==
LOC: ED 22:50 → PCU 06-23 00:43
PROVIDERS: Nurse Practitioner Family; Admitting Provider Hospitalist; Emergency Provider Emergency Medicine; PCP Family Medicine; Visit Provider Family Medicine
DX: I25.10 Atherosclerotic heart disease of native coronary artery without angina pectoris (principal); E11.65 Type 2 diabetes mellitus with hyperglycemia; Z79.4 Long term (current) use of insulin; M54.2 Cervicalgia; M25.512 Pain in left shoulder; Z86.16 Personal history of COVID-19; Q23.1 Congenital insufficiency of aortic valve; I10 Essential (primary) hypertension; R94.39 Abnormal result of other cardiovascular function study; R06.02 Shortness of breath; R68.84 Jaw pain; E78.00 Pure hypercholesterolemia, unspecified; Z79.899 Other long term (current) drug therapy
CPT/HCPCS: 36415; 71045; 78452; 80048; 80061; 82962; 84484; 85025; 85610; 93005; 93017; 93306; 93458; 96360; 96361; 99152; 99153; 99218; 99284; 99285; A9500; J7030; J7040; Q9967; A4216; C1769; C1894; G0378

== ENCOUNTER 2022-09-14 17:18 | Emergency (ER) | payer BC, SELFPAY ==
[2022-09-14 17:19] VITALS: BP 126/72; PULSE 77; RESP 15; TEMP 36.7; O2SAT 96; BMI 29.7
--- NOTE | 2022-09-14 20:07 | CT_ITS ---
STUDY: CT BRAIN WITHOUT CONTRAST REASON FOR EXAM: Male, 56 years old. Injury to head RADIATION DOSAGE (If Supplied By Facility): CTDIvol = ( 44.99 ) mGy, DLP = ( 812.98 ) mGycm TECHNIQUE: Transaxial CT imaging of the brain was performed without administration of intravenous contrast material. Individualized dose optimization techniques were used for this CT. COMPARISON: No relevant priors. FINDINGS: Small rightward forehead laceration. Normal calvarium. Normal size ventricles and extra-axial spaces for the patient''s age. Normal white matter tracts of the cerebral hemispheres. Normal basal ganglia and thalami. Normal brainstem. Redemonstrated area of left cerebellar encephalomalacia. There is no intracranial hemorrhage. There are no findings of an acute ischemic infarction. Normal visualized paranasal sinuses. CT/Brain/Head without Contrast IMPRESSION: No acute abnormal intracranial finding. Electronically Signed: Wyatt Ferrer MD at 20:56 EST ,
--- NOTE | 2022-09-14 20:20 | EDS_ITS ---
HPI <ELENA Ambriz - Last Filed: 09/14/22 22:17> History of Present Illness Chief Complaint: Laceration Narrative Narrative: Patient presents today with a laceration to his scalp that occurred earlier this evening. 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 He is unsure if it was the tool or the [employer] truck driver shaft that hit him, but he states that whichever it was it was heavy. Patient last received a tetanus in November 2021. He is not on any blood thinners. He denies headache, loss of consciousness, nausea, vomiting, visual changes, and confusion. [facility] <ELENA Ambriz - Last Filed: 09/14/22 22:17> [facility] Medical History Diabetes Heart valve problem High blood pressure High cholesterol History of aortic stenosis Microalbuminuria Home Medications lisinopril 40 mg tablet 40 ea PO DAILY 06/09/21 [History Last Taken Unknown] carvedilol 6.25 mg tablet 6.25 mg PO BID 11/24/21 [History Last Taken Unknown] cholecalciferol (vitamin D3) 50 mcg (2,000 unit) capsule 50 mcg PO DAILY 11/24/21 [History Last Taken Unknown] garlic 1,000 mg capsule 1,000 mg PO DAILY 11/24/21 [History Last Taken Unknown] omega-3 fatty acids 1,000 mg capsule 1,000 mg PO DAILY 11/24/21 [History Last Taken Unknown] insulin glargine 100 unit/mL (3 mL) subcutaneous pen 55 unit (0.55 mL) subcut QHS #18 mL 04/26/22 [Rx Last Taken Unknown] metformin 750 mg tablet,extended release 24 hr 750 mg PO BID #180 tabs 05/04/22 [Rx Last Taken Unknown] glimepiride 4 mg tablet 4 mg PO DAILY #90 tabs 05/17/22 [Rx Last Taken Unknown] Farxiga 10 mg tablet (dapagliflozin) 10 mg PO DAILY #90 tabs 07/13/22 [Rx Last Taken Unknown] rosuvastatin 20 mg tablet 20 mg PO DINNER #90 tabs 07/27/22 [Rx Last Taken Unknown] insulin lispro 100 unit/mL subcutaneous pen (Humalog KwikPen (U-100) Insulin) 20 unit (0.2 mL) subcut DINNER #15 mL 09/07/22 [Rx Last Taken Unknown] Allergy/AdvReac Type Severity Reaction Status Date / Time No Known Allergies Allergy Verified 09/07/22 15:48 Family History Other CVA (cerebral vascular accident) Colon cancer Diabetes Heart disease High cholesterol Hypertension Kidney disease Myocardial infarction Surgical History Hx of tonsillectomy Social History Smoking Status: Never smoker alcohol intake: current alcohol intake frequency: holidays/special occasions only substance use type: does not use what type of physical activity do you participate in: none ROS <ELENA Ambriz - Last Filed: 09/14/22 22:17> ROS ED Constitutional Constitutional ED: Denies chills, fever(s) or sweats Eyes Eyes: Denies blurry vision, change in vision or photophobia ENT ENT ED: Denies nasal congestion, rhinorrhea or sore throat Cardiovascular Cardiovascular: Denies chest pain, palpitations or racing heartbeat Respiratory/Chest Respiratory/Chest: Denies cough, dyspnea or dyspnea on exertion Gastrointestinal Gastrointestinal: Denies abdominal pain, diarrhea, nausea or vomiting Genitourinary Genitourinary ED: Denies dysuria, hematuria or urinary frequency Musculoskeletal Musculoskeletal: Denies arthralgias, back pain or neck pain Integumentary Reports laceration; Denies abscess or rash Neurologic Neurologic: Denies headache(s), paresthesias or weakness Psychiatric Psychiatric: Denies anxiety or depression Hematologic/Lymphatic Hematologic/Lymphatic: Denies easy bleeding EXAM <ELENA Ambriz - Last Filed: 09/14/22 22:17> Physical Exam Const Vital Signs: 09/14/22 17:19 09/14/22 21:42 Temperature 98.1 F Temperature Source Temporal Pulse Rate 77 82 Respiratory Rate 15 15 Blood Pressure 126/72 H 118/75 Blood Pressure Mean 90 Pulse Ox 96 99 Oxygen Delivery Method Room Air Positive well nourished and well developed General Appearance ED: well developed and NAD HEENT HEENT Narrative: Patient has a 1 inch complex laceration to his right upper head. There is mild edema to the area. No ecchymosis. Eyes PERRL and EOMs intact bilaterally Neck full ROM General: Negative for tenderness Chest Wall inspection of chest normal Resp normal respiratory effort and clear to auscultation bilaterally Cardio regular rhythm Rate: regular rate GI non-tender, non-distended and no masses Palpation: soft Back/Spine normal to inspection and no thoracic nor lumbar tenderness Extremity normal to inspection and full ROM General Extremety ED: Negative for deformity or edema General Extremity: Negative for deformity or edema Neuro oriented x3, CN's II-XII intact bilaterally, moves all extremities, no focal motor deficits, no sensory deficits noted and gait normal Sensorium / Orientation: alert Motor Exam: strength 5/5 throughout Psych mental status grossly normal and thought process normal Skin skin turgor normal Skin Narrative: See above. <Dr. Shaina Garza DO - Last Filed: 09/14/22 23:42> Physical Exam Const Vital Signs: 09/14/22 17:19 09/14/22 21:42 Temperature 98.1 F Temperature Source Temporal Pulse Rate 77 82 Respiratory Rate 15 15 Blood Pressure 126/72 H 118/75 Blood Pressure Mean 90 Pulse Ox 96 99 Oxygen Delivery Method Room Air PROC <ELENA Ambriz - Last Filed: 09/14/22 22:17> Procedures Lacerations laceration : Length: 0.79 in Depth: Skin Shape: Stellate Prep: Sterile Conditions and Chlorhexadine Laceration repair: Irrigated and Lidocaine Irrigated (ml): 100 Number of Sutures/Christian: 6 Suture Information: Vicryl (5-0) [facility] <ELENA Ambriz - Last Filed: 09/14/22 22:17> [facility] Narrative Medical decision making narrative: Wound was cleaned, irrigated, and sutured. [address] of the head shows no acute findings. Patient was given return instructions. I educated patient on signs of infection to look out for. I am comfortable with patient discharging home and patient is comfortable with plan. Radiography Diagnostic Testing: Clinical Impression(s) from Imaging Studies Brain CT 09/14/22 20:07 IMPRESSION: No acute abnormal intracranial finding. Electronically Signed: Wyatt Ferrer MD at 20:56 EST , CT reviewed and I agree with radiologist impressions. This has also been reviewed by attending ED physician. <Dr. Shaina Garza, DO - Last Filed: 09/14/22 23:42> MDM Radiography Diagnostic Testing: Clinical Impression(s) from Imaging Studies Brain CT 09/14/22 20:07 IMPRESSION: No acute abnormal intracranial finding. Electronically Signed: Wyatt Ferrer MD at 20:56 EST , Treatment and Re-Evaluation Narrative: I have personally performed a face to face assessment of the patient and have reviewed the MARCUS Note. I performed a substantive portion of the visit including all aspects of the following. My garcia findings include: History is patient is a 56-year-old male up-to-date on tetanus vaccine, on no anticoagulation presenting with a head injury. Patient was working on a car when a heavy piece of metal fell from the car and hit his head. No loss of conscious. Patient stained a laceration to his forehead. Patient has a slightly irregular approximately 3 cm full-thickness laceration to his upper for ehead. Laceration repair performed by ELENA. See her procedure note. Head CT obtained which does not show any acute intracranial findings. Patient be discharged home. Rapid Vicryl suture placed patient is counseled generalized wound care. Discharge Plan Triage Chief Complaint: Laceration ED Midlevel Provider: Deb Albarran ED Provider: Shaina Garza Dx/Rx/DC Orders Clinical Impression: Laceration Instructions: ED Laceration: All Closures Prescriptions: No Action lisinopril 40 mg tablet 40 ea PO DAILY Label Comments: TAKE 1 TABLET BY MOUTH ONCE DAILY carvedilol 6.25 mg tablet 6.25 mg PO BID garlic 1,000 mg capsule 1,000 mg PO DAILY omega-3 fatty acids 1,000 mg capsule 1,000 mg PO DAILY cholecalciferol (vitamin D3) 50 mcg (2,000 unit) capsule 50 mcg PO DAILY metformin 750 mg tablet extended release 24 hr 750 mg PO BID Qty: 180 1RF insulin lispro [Humalog KwikPen Insulin] 100 unit/mL insulin pen 20 unit subcut DINNER Qty: 15 6RF Rx Instructions: takes at dinner insulin glargine 100 unit/mL (3 mL) insulin pen 55 unit subcut QHS Qty: 18 3RF glimepiride 4 mg tablet 4 mg PO DAILY Qty: 90 1RF Farxiga 10 mg tablet 10 mg PO DAILY Qty: 90 1RF Rx Instructions: in the evening 6pm rosuvastatin 20 mg tablet 20 mg PO DINNER Qty: 90 3RF Primary Care Provider: Brian Barillas Referrals: Brian Barillas MD [Primary Care Provider] - 3-5 Days Activity Restrictions/Additional Instructions: Sutures should dissolve on their own but you can have them removed in 4 to 5 days. Please return for any signs of infection. Keep area clean and covered. Disposition Disposition: Home, Self Care Discharge Date/Time: 09/14/22 21:44
[2022-09-14] MEDS: Lidocaine 1% (20 ml mdv) 20 ML Vial 10 ML INFILT (21:41)
[2022-09-14 21:42] VITALS: BP 118/75; PULSE 82; RESP 15; O2SAT 99
== END 2022-09-14 21:44 | disposition home or self-care (01) ==
PROVIDERS: Emergency Provider Emergency Medicine; PCP Family Medicine; Visit Provider Emergency Medicine
DX: S01.01XA Laceration without foreign body of scalp, initial encounter (principal); E11.9 Type 2 diabetes mellitus without complications; E78.00 Pure hypercholesterolemia, unspecified; W22.8XXA Striking against or struck by other objects, initial encounter
CPT/HCPCS: 12001; 70450; 99284

== ENCOUNTER → 2023-11-01 | Outpatient (CLI) | payer BC, SELFPAY ==
--- OUTSIDE RECORDS SUMMARY | 2023-11-01 16:43 | XMS RPT_ITS | CCD ---
Author Name Unknown Address [address] [place] [address] Organization [facility] Care Team Providers Care Physician Obstetrician Name Role Phone Unavailable Primary Care Provider UnavailJ LUIS Hood Consulting Unavailable RUTHY NJ MD Admitting Unavailable RUTHY NJ MD Primary Care Unavailable RUTHY NJ MD Attending Unavailable PROVIDER, UNKNOWN Consulting Unavailable PROVIDER, UNKNOWN Consulting Unavailable PROVIDER, UNKNOWN Consulting Unavailable Problems Problem Classification Problem Date Documented Da te Episodic/Chronic Diabetes mellitus with complications (3 sources) Type 2 diabetes mellitus with hyperglycemia; Translations: [Type 2 diabetes mellitus with hyperglycemia] Onset: 03-15-2023 Chronic Other aftercare (1 source) 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 Payers Date Payer Category Payer Unknown [id number] Unknown [id number] Social History Date Type Detail Facility Tobacco smoking stat [facility] Tobacco smoking consumption unknown [facility] Start: 1965 Sex Assigned At Not on file C [facility] Summary Purpose Family History No Family History Records FoundNo Family History Records FoundNo Family History Records FoundNo Family History Records Found Advance Directives No Advanced Directives Records FoundNo Advanced Directives Records FoundNo Advanced Directives Records FoundNo Advanced Directives Records Found Additional Source Comments (unrecognized sect ion and content) No Status Records FoundNo Status Records FoundNo Status Records FoundNo Status Records Found INFORMATION SOURCE (unrecogn ized section and content) DATE CREATED AUTHOR AUTHOR'S ORGANIZ ATION 06/16/2022 [facility] DATE CREATED AUTHOR AUTHOR'S ORGANIZ ATION 03/22/2023 [facility] DATE CREATED AUTHOR AUTHOR'S ORGANIZ ATION 03/22/2023 [facility] Source Comments (unrecognize d section and content) In the event this informatio n is protected by the Federal Confidentiality of Alcohol and Drug Abuse Patient Records regulations: The Federal rules restrict any use of the information to criminally investigate or prosecute any alcohol or drug abuse patient.[facility] FOR RECORDS PERTAINING TO PATIENTS WHO ARE OR HAVE BEEN ENROLLED IN A CHEMICAL DEPENDENCY/SUBSTANCEABUSE PROGRAM, SOME INFORMATION MAY BE OMITTED. This clinical summary was aggregated from multiple sources. Caution should be exercised in using it in the provision of clinical care. This summary normalizes information from multiple sources, and as a consequence, information in this document may materially change the coding, format and clinical context of patient data. In addition, data may be omitted in some cases. CLINICAL DECISIONS SHOULD BE BASED ON THE PRIMARY CLINICAL RECORDS. [employer] provides no warranty or guarantee of the accuracy or completeness of information in this document.
[2023-11-01 17:00] LABS: Absolute Lymphocyte Count 2.21 X10^3/uL (0.83-4.51); Absolute Neutrophil Count 3.2 X10^3/uL (2.0-7.7); Basophil# 0.04 X10^3/uL; Basophil% 0.6 % (0-1); Eosinophil# 0.17 X10^3/uL; Eosinophils% 2.8 % (0-5); Hematocrit 42.8 % (40-54); Hemoglobin 14.4 g/dL (13.0-16.5); Lymphocyte # 2.21 X10^3/ul (0.83-4.51); Lymphocyte % 35.9 % (19-41); Mean Corp Hgb Conc 33.6 g/dL (32-36); Mean Corpuscular Hgb 29.2 pg (27.0-32.0); Mean Corpuscular Volume 86.8 fL (80-94); Mean Platelet Vol. 9.6 fl (6.2-12.0); Monocyte# 0.55 X10^3/uL; Monocyte% 8.9 % (0-10); NRBC Flagged by Analyzer 0 % (0-5); Neutrophil # 3.17 X10^3/uL (2.7-7.7); Neutrophil % 51.5 % (47-70); Platelet Count 166 K/mm3 (150-450); RBC Distribution Width SD 40.8 fl (35.1-43.9); Red Blood Count 4.93 M/mm3 (4.6-6.2); White Blood Count 6.2 K/mm3 (4.4-11.0)
[2023-11-01 17:32] LABS: ALB/GLOB Ratio 1.2 RATIO (0.9-2.4); AST(SGOT) 23 U/L (15-37); Alanine Aminotransfer ALT/SGPT 38 U/L (16-61); Albumin, Serum 3.9 g/dL (3.2-5.0); Alkaline Phosphatase 53 U/L (45-117); Anion Gap 4 (5-15); BUN 28 mg/dL (7-18); BUN/Creat Ratio 29.3 RATIO (10-20); Chloride 105 mmol/L (98-107); Creatinine, Serum 0.96 mg/dL (0.70-1.30); EST Glomerular Filtration Rate 86 mL/min (>60); Est Glom Filt Rate - Afr Amer 104 mL/min (>60); Globulin 3.3 g/dL (2.2-4.2); Glucose 174 mg/dL (74-106); PSA,Total - Annual Screen 0.26 ng/mL (0.00-4.00); Potassium 4.1 mmol/L (3.5-5.1); Protein, Total 7.2 g/dL (6.4-8.2); Sodium Level 138 mmol/L (136-145); Thyroid Stim Hormone (TSH) 2.16 uIU/mL (0.358-3.74)
[2023-11-01 18:12] LABS: Hepatitis C Antibody Non-Reactive (Nonreactive); Vitamin D,25 Hydroxy 43.9 ng/mL
== END | disposition home or self-care (01) ==
LOC: POLAB3 16:39
PROVIDERS: PCP Family Medicine Geriatric Medicine; Visit Provider Family Medicine Geriatric Medicine
DX: Z12.5 Encounter for screening for malignant neoplasm of prostate (principal); I10 Essential (primary) hypertension; E55.9 Vitamin D deficiency, unspecified; R53.82 Chronic fatigue, unspecified; Z13.89 Encounter for screening for other disorder
CPT/HCPCS: 36415; 80053; 82306; 84153; 84443; 85025; 86803; G0103

== ENCOUNTER → 2023-11-08 | Outpatient (CLI) | payer BC, SELFPAY ==
--- OUTSIDE RECORDS SUMMARY | 2023-11-08 10:19 | XMS RPT_ITS | CCD ---
Author Name Unknown Address [address] [place] [address] Organization [facility] Care Team Providers Care Imaging Clerk Name Role Phone Unavailable Primary Care Provider UnavailJ LUIS Hood Consulting Unavailable RUTHY NJ MD Admitting Unavailable RUTHY NJ MD Primary Care Unavailable RUTHY NJ MD Attending Unavailable PROVIDER, UNKNOWN Consulting Unavailable PROVIDER, UNKNOWN Consulting Unavailable PROVIDER, UNKNOWN Consulting Unavailable Eran SMITH, J Luis Michaels Unavailable Mainor SMITH., Dr. Amezquita Unavailable [phone] Jules SMITH ([place]), Dr. Hagen Unavailable Navid SMITH, Dr. Merchant Unavailable [phone] King LUIS, Dr. Trevizo Unavailable Js SMITH, Dr. Ryder Rendon Unavailable [phone] Zheng OFFSHORING MANAGER, Breanne Unavailable Day OFFSHORING MANAGER, Rosario Unavailable Unavailable Radhames OFFSHORING MANAGER, Renae C Unavailable Unavailable Gogoi (scribe), Hemanta Unavailable Unavaila seamus Kline OFFSHORING MANAGER, Jessica Unavailable Unavailable Waldemar SMITH, Surendra Dover Unavailable Justin OFFSHORING MANAGER, Jessica Unavailable Unavailable Steven LUNDBERG, Josselyn Dover Unavailable Unavaila seamus Rubio (Scribe), El Unavailable Unavailab bhargav Blackwood RN, Viv Bruce Unavailable Unavailable Chan OFFSHORING MANAGER, Hayde K Unavailable Unavai bernardo George PA-C, Eve Bolanos Unavailable Del (Scribe), Rolf Unavailable Unavailab le Thom STAFFING ACCOUNT MANAGER, Valerie Unavailable Unavailable Luz OFFSHORING MANAGER, Janny Banks Unavailable Unavailab le Maryuri OFFSHORING MANAGER, Melissa Villavicencio Unavailable Unavailab bhargav Fermin LPN, Anahi Chester Unavailable Unavailab Jessica Xie MA Unavailable Unavailable Wandy ALVES, Gia Unavailable Unavailabl fredy Bridges LPN, Yenny Anguiano Unavailable Unavaila seamus Cooley LPN, Saskia Unavailable Unavailable Unavailable Unavailable Medications Current Medications Medication Drug Class(es) Dates Sig (Normalized) Sig (Original) carvedilol 6.25 mg oral tablet (1 source) alpha-Adrenergic Luci, beta-Adrenergic Luci take 1 tablet by mouth twice daily Carvedilol 6.25 MG Oral Tablet ; 1 two times daily (6.25 MG) Comments: Ultrasonic Cleaner Completed/Discontinued Medications Medication Drug Class(es) Dates Sig (Normalized) Sig (Original) canagliflozin 300 mg oral tablet (1 source) Sodium-Glucose Cotransporter 2 Inhibitor Start: 11-27-2015 End: 08-29-2017 take 1 tablet by mouth once daily Invokana 300 MG Oral Tablet ; 1 (one) Tablet Tablet daily for 0 days Quantity: 30 {Tablet} Refills: 5 Ordered: 29-Aug-2017 LONG Fermin Anahi Chester Start: 27-Nov-2015 End: 29-Aug-2017 Status: Inactive doxycycline hyclate 100 mg oral tablet (1 source) Tetracycline-class Drug Start: 10-13-2018 End: 09-04-2019 take 2 tablets by mouth once Doxycycline Hyclate 100 MG Oral Tablet ; 2 (two) Tablet Tablet one time dose for 0 days Quantity: 2 {Tablet} Refills: 0 Ordered: 04-Sep-2019 LONG Cooley Start: 13-Oct-2018 End: 04-Sep-2019 Status: Inactive glyBURIDE 5 mg oral tablet (1 source) Sulfonylurea Start: 02-08-2012 End: 09-19-2012 take 1 tablet by mouth twice daily GLYBURIDE, 5MG (Oral Tablet) ; 1 Tablet two times daily for 0 days Quantity: 60 {Tablet} Refills: 5 Ordered: 19-Sep-2012 LONG Bridges Start: 08-Feb-2012 End: 19-Sep-2012 Status: Inactive 3 ml insulin glargine 100 unt/ml pen injector (2 sources) Insulin Analog Start: 03-31-2021 End: 06-08-2022 Lantus SoloStar 100 UNIT/ML Subcutaneous Solution Pen-injector ; 80 units daily at the same time each for 0 days Quantity: 1 {Package} Refills: 5 Ordered: 08-Jun-2022 LONG Fermin Anahi Chester Start: 31-Mar-2021 End: 08-Jun-2022 Status: Inactive Comments: 1 package of 5 pens Problems Active Problems Problem Classification Problem Date Documented Da te Episodic/Chronic Conditions associated with dizziness or vertigo (2 sources) Dizziness; Translations: [Dizziness and giddiness] 12-03-2021 Episodic Diabetes mellitus with complications (12 sources) Type 2 diabetes mellitus with hyperglycemia; Translations: [Type 2 diabetes mellitus] Onset: 03-15-2023 Chronic Past or Other Problems Problem Classification Problem Date Documented Da te Episodic/Chronic Unclassified (1 source) Well Adult, male - The patient feels well with no complaints, has good energy level and is sleeping well. The patient has a balanced diet and takes supplemental vitamins. The patient does not exercise. The patient sleeps 7 hours per night. Note for Well Adult, male : A1C 7.1 03/15/23 through endo. 05-17-2023 Unclassified (1 source) Follow-up for multiple chronic conditions (RAH) - The patient is here for follow-up of hypertension, hyperlipidemia, diabetes, obesity and other condition(s) (ED, Carcinoma). The patient always takes the prescribed medications. No side effects noted. The patient has an active lifestyle but no regular exercise program, has been carefully following a diabetic diet, has not kept a diet diary and has been eating at least 25 grams of fiber daily. The patient's glucose levels are monitored daily, out of office blood pressure checks occur frequently and dietary compliance is good with close adherance to recommendations. The patient has been seen by an electronic warfare specialist in the past 12 months and experienced changes in vision since the last visit, but has not had numbness in the feet, had tingling in the feet, had burning in the feet, experienced symptoms of low blood sugar more than once since the last rtn visit or had a chemistry profile completed since the last visit. The patient states that pain is generally stable, mood is unchanged and they do not have headaches. Note for Multiple chronic conditions follow-up : [place] - 01/02/2019Patient last Lipid and CMP level was checked back in 09/05/2018. His blood pressure today is elevated at 155/85. Otherwise, no other questions or concerns. 05-03-2019 Unclassified (1 source) tick bite - Patient is here with complaints of having a tick bite that he noticed Tuesday - didn't remove it until last night. Brother tried taking it out with tweezers. No nausea of fever. Is located on his back. 10-13-2018 Unclassified (1 source) Well Adult, male - The patient feels well with no complaints, has good energy level and is sleeping well. The patient has a balanced diet and takes supplemental vitamins. The patient does not exercise. The patient sleeps 4 hours per night. 10-05-2016 Unclassified (1 source) Form Completion Physicals - The patient feels well with no complaints, has good energy level and is sleeping well. There are no current symptoms. The patient exercises weekly. The patient has an appropriate balanced diet, eats a variety of foods and takes suppemental vitamins and sleeps on average 6 hours per night. Safety measures include appropriate use of car seats/safety belts, appropriate use of helmets, appropriate use of safety belts, avoiding exposure to passive smoke and awareness of dangers of passenger-side air bags. There are no behavioral problems. 04-15-2015 Unclassified (1 source) [facility] Routine Follow up - The patient is here for follow-up of hypertension (Last rtn visit 08.01.14. Lipid, PSA, CBC, CMP 7.07.23.), hyperlipidemia and diabetes (Hgb A1c today. UA PC:Ratio 4.17.14.). The patient always takes the prescribed medications. No side effects noted. The patient engages in regular program 3-5 time(s) per week. The patient's out of office blood pressure checks occur rarely and dietary compliance is fairly good usually adhering to recommendations. The patient states that breathing effort is stable, there is no recent angina or dyspnea, there are no vision changes or weakness (Encouraged patient to schedule an eye exam.), weight has increased (2#), mood is unchanged and they do not have headaches. The patient tests blood sugar daily (Checks 2-3 times a day; fasting home bs today: 245 Patient reports his bs readings have been higher in the past 4 days. He is questioning if it could be because of the cold he is currently fighting.). 2014 Unclassified (1 source) [facility] Routine Follow up - The patient is here for follow-up of hypertension (Last rtn visit 09/19/12. Lipid and CMP 01/11/13. ), hyperlipidemia and diabetes (A1c today. UA PC:Ratio 09/19/12.). The patient always takes the prescribed medications. No side effects noted. (Patient stopped Januvia. ) The patient engages in regular program 1-3 time(s) per week. The patient's out of office blood pressure checks occur rarely and dietary compliance is fairly good usually adhering to recommendations. The patient states that breathing effort is stable, there is no recent angina or dyspnea, there are no vision changes or weakness, weight has decreased (3#), mood is unchanged and they do not have headaches. The patient tests blood sugar daily (Checks three times a day; home fasting bs today: 186). Note for Routine chronic follow-up : Patient needs a pneumonia vaccine. Patient also has a form to be completed. 03-27-2013 Results Test Name Value Interpretation Reference Range Facil ity Vital Signs Date Time Vital Sign Value Performing Clinician Chrissie jenkins 05-17-2023 15:50-0400 Body height 170.18 cm Alayna Jeny [facility] [employer], [employer] 05-17-2023 15:50-0400 Body mass index (BMI) [Ratio] 29.76 kg/m2 [facility] [employer] 05-17-2023 15:50-0400 Body surface area Derived from formula 1.98 m2 [facility] Jeny OFFSHORING MANAGER [place] [facility] [employer], [employer] 05-17-2023 15:50-0400 Body weight 86.18 kg [facility] [employer], [employer] 05-17-2023 15:50-0400 Diastolic blood pressure 78 mm[Hg] [facility] Jeny OFFSHORING MANAGER [place] [facility], [facility] [employer], [employer] Encounters Encounter Date Encounter Type Care Provider Facility Start: 05-17-2023 End: 05-17-2023 Periodic preventive med est patient 40-64yrs J Luis Barillas MD Work Phone: [employer] Start: 04-26-2023 End: 04-26-2023 Orders J Luis Barillas MD Work Phone: [employer] Start: 03-15-2023 End: 03-15-2023 ambulatory J LUIS BARILLAS [facility] Start: 11-16-2022 End: 11-16-2022 Office outpatient visit 15 minutes J Luis Barillas MD Work Phone: [employer] Start: 09-16-2022 End: 09-16-2022 Telephone follow-up J Luis Barillas MD Work Phone: [employer] Start: 07-02-2022 End: 07-02-2022 Admission to establishment J Luis Barillas MD Work Phone: [employer] Start: 06-08-2022 End: 06-08-2022 Periodic preventive med est patient 40-64yrs J Luis Barillas MD Work Phone: [employer] Start: 04-15-2022 End: 04-15-2022 Orders J Luis Barillas MD Work Phone: [employer] Start: 01-01-2022 End: 01-01-2022 Subsequent hospital visit by physician Provider [facility] Procedures Date Procedure Procedure Detail Performing Clinician Start: 05-17-2023 End: 05-17-2023 Depression screening J Luis Barillas MD Work Phone: Start: 05-17-2023 End: 05-17-2023 Scr dep neg, no plan reqd J Luis Barillas MD Work Phone: Start: 03-15-2023 End: 03-15-2023 Hemoglobin A1c/Hemoglobin.total in Blood Alayna Jeny OFFSHORING MANAGER Plan of Treatment Date Care Activity Detail Author Start: 05-17-2023 Comprehensive metabo lic panel CMP w/ GFR* ([id number]) Start: 17-May-2023 15:54 Request [employer]; [facility] Start: 05-17-2023 Lipid panel LIPID PANEL ([id number]) Start: 17-May-2023 15:54 Request [place] [employer]. Start: 04-15-2015 Patient Education Erectile Dys function: dysfunction Indication: ED (erectile dysfunction) Start: 15-Apr-2015 Instruction Type: [facility] Education [facility] [employer] Start: 03-16-2011 Provider Instruction s for Treatment rah Generic Inst Indication: Type II diabetes mellitus, uncontrolled Start: 16-Mar-2011 Instruction Type: Provider Instructions for Treatment [employer]. Immunizations Immunization Date Immunization Notes Care Provider Fa cility 06-08-2022 pneumococcal conjuga te vaccine, 13 valent J Luis Barillas MD Work Phone: [place] [facility]; [employer] Payers Date Payer Category Payer Unknown [id number] Unknown [id number] Social History Date Type Detail Facility Tobacco smoking status [facility] Tobacco smoking consumption unknown [facility] Start: 1965 Sex Assigned At Not on file [facility] Alcohol Use Alcohol Use [facility] [employer] Current Work/Study Status: 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 [employer] Tobacco Use: Tobacco Use: ; N ever smoker. [employer] Male [employer]; [employer] Work Phone: Self-employed [employer]; [employer]. Work Phone: Occasional alcohol use [facility] [employer]; [employer]. Work Phone: Never smoked tobacco [employer]. Work Phone: Medical Equipment Procedure Code Equipment Code Equipment Origin al Text Equipment Identifier Dates pen needle, diab etic 31 gauge x 5/16 ; 1 (one) Misc Misc as directed for 0 days Quantity: 100 {Unspecified} Refills: 3 Ordered: 17-May-2023 LONG Fermin Start: 28-Jun-2018 End: 17-May-2023 Status: Inactive Comments: #100 needles [id number] Start: 06-28-2018 End: 05-17-2023 Summary Purpose Family History Cancer Status:Active Comments:Grandmo ther, grandfather Coronary Artery Disease Status:Active Comments :Mother. Aunts, Uncles Diabetes Mellitus Type II Status:Active Commen ts:Mother. Aunts, Uncles Hypertension Status:Active Comments:Mother. Aunts, Uncles Osteoarthritis Status:Active Comments:Mother. Thyroid problems Status:Active Comments:Mother . Advance Directives No Advanced Directives Records FoundNo Advanced Directives Records FoundNo Advanced Directives Records FoundNo Advanced Directives Records Found Additional Source Comments (unrecognized sect ion and content) No Status Records FoundNo Status Records FoundNo Status Records FoundNo Status Records Found INFORMATION SOURCE (unrecogn ized section and content) DATE CREATED AUTHOR AUTHOR'S ORGANIZ ATION 06/16/2022 [facility] DATE CREATED AUTHOR AUTHOR'S ORGANIZ ATION 03/22/2023 [facility] DATE CREATED AUTHOR AUTHOR'S ORGANIZ ATION 03/22/2023 [facility] Source Comments (unrecognize d section and content) In the event this informatio n is protected by the Federal Confidentiality of Alcohol and Drug Abuse Patient Records regulations: The Federal rules restrict any use of the information to criminally investigate or prosecute any alcohol or drug abuse patient.[facility] FOR RECORDS PERTAINING TO PATIENTS WHO ARE [...] BE BASED ON THE PRIMARY CLINICAL RECORDS. [email or web address] provides no warranty or guarantee of the accuracy or completeness of information in this document.
--- NOTE | 2023-11-08 14:22 | PFTCOMP ---
COMPLETE PULMONARY FUNCTION TEST INTERPRETATION Brief HPI: Patient is a 58-year-old male, currently under the care of Dr. Cervantes, who presents to [facility] for complete pulmonary function tests secondary to diagnosis of dyspnea. Respiratory therapist reports good effort and reproducible results. Interpretation: Forced expiration spirometry shows no large airways obstructive ventilatory defect with an FEV1 of 97% predicted. There is no significant bronchodilator response by strict ATS criteria. Spirograms are of good quality and plateau normally. The respiratory flow volume loop shows a normal pattern. Lung volumes by body plethysmography show a normal total lung capacity at 5.65 L, 87% predicted. All other lung volumes are within normal limits. Diffusion capacity by carbon monoxide is normal at 89% predicted. The airway resistance is slightly elevated. No previous pulmonary function tests were available for review. Impression: These pulmonary function tests are grossly within normal limits.
== END | disposition home or self-care (01) ==
PROVIDERS: PCP Family Medicine Geriatric Medicine; Referring Provider Family Medicine Geriatric Medicine; Visit Provider Family Medicine Geriatric Medicine
DX: R06.02 Shortness of breath (principal)
CPT/HCPCS: 94060; 94726; 94729

== ENCOUNTER → 2023-11-29 | Outpatient (CLI) | payer BC, SELFPAY ==
[2023-11-29 17:37] LABS: AST(SGOT) 26 U/L (15-37); Alanine Aminotransfer ALT/SGPT 42 U/L (16-61); Albumin, Serum 4.1 g/dL (3.2-5.0); Alkaline Phosphatase 57 U/L (45-117); Cholesterol 153 mg/dL (200); Globulin 3.3 g/dL (2.2-4.2); High Density Lipoprotein 45 mg/dL; Protein, Total 7.4 g/dL (6.4-8.2); Triglycerides 287 mg/dL; Very Low Density Lipoprotein 57 mg/dL (5-40)
== END | disposition home or self-care (01) ==
LOC: POLAB3 15:25
PROVIDERS: Physician Assistant Medical; PCP Family Medicine Geriatric Medicine; Visit Provider Family Medicine Geriatric Medicine
DX: E78.5 Hyperlipidemia, unspecified (principal)
CPT/HCPCS: 36415; 80061; 80076

== ENCOUNTER → 2023-12-01 | Outpatient (CLI) | payer BC, SELFPAY ==
--- NOTE | 2023-12-01 13:54 | ECHOD_ITS ---
Reason For Study: BICUSPID AORTIC VALVE Procedure This was a 2D Doppler, Color Flow transthoracic echocardiogram. Left Ventricle Normal LV size. Left ventricular systolic function is normal. The estimated ejection fraction is 65 %. Stage 1 diastolic dysfunction. No regional wall motion abnormalities noted. Right Ventricle Normal RV size. Normal systolic function. Atria The left atrium is mildly enlarged. Normal right atrium. Mitral Valve Normal mitral valve. Tricuspid Valve Normal tricuspid valve. Mild (1+) tricuspid valve insufficiency. Pulmonary artery systolic pressure is 40 mmHg. Aortic Valve Bicuspid aortic valve. Peak aortic valve gradient 60 mmHg. Mean aortic valve gradient 37 mmHg. Moderate to severe aortic stenosis. Pulmonic Valve Normal pulmonic valve. Great Vessels Normal aortic root. The pulmonary artery is normal size. Inferior vena cava collapse with respiration. Pericardium/Pleural No pericardial effusion. MMode/2D Measurements & Calculations LVIDd: 4.9 cm IVSd: 1.3 cm LVOT diam: 2.9 cm LVIDs: 3.4 cm LVPWd: 0.95 cm LVOT area: 6.5 cm2 RVDd: 2.9 cm FS: 29.2 % Ao root diam: 3.8 cm LAV(MOD-bp): 80.4 ml LVAd ap4: 35.7 cm2 LAV(MOD-bp) Indexed: 40.6 ml/m2 LVLd ap4: 8.9 cm LAV(MOD-sp2): 76.4 ml EDV(MOD-sp4): 117.6 ml LAV(MOD-sp4): 78.5 ml EDV(sp4-el): 121.8 ml LVAs ap4: 20.1 cm2 LVLs ap4: 6.7 cm ESV(MOD-sp4): 52.7 ml ESV(sp4-el): 50.9 ml EF(MOD-sp4): 55.1 % EF(sp4-el): 58.2 % LVAd ap2: 28.3 cm2 SV(MOD-sp4): 64.8 ml SV(MOD-sp2): 44.2 ml LVLd ap2: 8.6 cm EDV(MOD-sp2): 82.3 ml EDV(sp2-el): 79.4 ml LVAs ap2: 17.3 cm2 LVLs ap2: 6.7 cm ESV(MOD-sp2): 38.1 ml ESV(sp2-el): 37.9 ml EF(MOD-sp2): 53.7 % SV(sp4-el): 70.9 ml LA dimension(2D): 3.5 cm LA A4 area: 23.6 cm2 RA A4 area: 17.3 cm2 TAPSE: 2.8 cm Time Measurements MV dec time: 0.23 sec Doppler Measurements & Calculations MV E max emmanuel: 65.3 cm/sec Lat Peak E' Emmanuel: 7.4 cm/sec Med Peak E' Emmanuel: 5.9 cm/sec MV A max emmanuel: 88.3 cm/sec E/E' lat: 8.8 E/E' med: 11.1 MV E/A: 0.74 MV V2 max: 97.6 cm/sec MV P1/2t max emmanuel: 84.9 cm/sec Ao V2 max: 388.1 cm/sec MV max P.8 mmHg MV P1/2t: 72.2 msec Ao max P.3 mmHg MV V2 mean: 47.4 cm/sec Ao V2 mean: 292.5 cm/sec MV mean P.1 mmHg MV dec slope: 344.7 cm/sec2 Ao mean P.2 mmHg MV V2 VTI: 26.5 cm MVA(P1/2t): 3.0 cm2 Ao V2 VTI: 94.1 cm AV (velocity ratio): 0.19 MVA(VTI): 4.4 cm2 SILVESTRE(I,D): 1.3 cm2 SILVESTRE(V,D): 1.2 cm2 LV V1 max: 70.6 cm/sec SV(LVOT): 118.0 ml PA V2 max: 122.0 cm/sec LV V1 max P.0 mmHg PA V2 mean: 79.7 cm/sec LV V1 mean P.2 mmHg LV V1 mean: 52.3 cm/sec LV V1 VTI: 18.2 cm TR max emmanuel: 304.7 cm/sec TR max P.1 mmHg ECHO/Echo Complete Interpretation Summary Normal LV size. Left ventricular systolic function is normal. The estimated ejection fraction is 65 %. Bicuspid aortic valve. Mean aortic valve gradient 37 mmHg. The left atrium is mildly enlarged. Stage 1 diastolic dysfunction. Peak aortic valve gradient 60 mmHg. Moderate to severe aortic stenosis. Ordering Physician: Jessica Sheehan Referring Physician: Arnaldo Cervantes Chi Performed By: Harper Mauricio, UTE, RVT
== END | disposition home or self-care (01) ==
LOC: CVS 13:53
PROVIDERS: PCP Family Medicine Geriatric Medicine; Referring Provider Physician Assistant Medical; Visit Provider Physician Assistant Medical
DX: Q23.1 Congenital insufficiency of aortic valve (principal); I77.810 Thoracic aortic ectasia
CPT/HCPCS: 93306

== ENCOUNTER 2023-12-12 08:39 | Day surgery (SDC) | payer OTHER, SELFPAY ==
--- NOTE | 2023-12-06 11:43 | RAD_ITS ---
EXAM: XR CHEST, 2 VIEWS CLINICAL INDICATION: for heart cath TECHNIQUE: Frontal and lateral views of the chest. COMPARISON: 06/22/2022 FINDINGS: LUNGS AND PLEURAL SPACES: No significant abnormality. No consolidation or edema. No pneumothorax. No effusion. HEART: No significant abnormality. Cardiac silhouette not enlarged. MEDIASTINUM: Central airways and mediastinal contour are unremarkable. BONES/JOINTS: No significant abnormality. No acute fracture. SOFT TISSUES: No significant abnormality. RAD/Chest PA and Lateral IMPRESSION: No radiographic evidence of acute cardiopulmonary disease. Electronically Signed: Jonas Olmso DO at 21:04 EST ,
[2023-12-06 12:11] LABS: Hematocrit 42.1 % (40-54); Hemoglobin 14.6 g/dL (13.0-16.5); Mean Corp Hgb Conc 34.7 g/dL (32-36); Mean Corpuscular Hgb 29.7 pg (27.0-32.0); Mean Corpuscular Volume 85.7 fL (80-94); Platelet Count 150 K/mm3 (150-450); RBC Distribution Width CV 12.4 % (11.6-14.6); RBC Distribution Width SD 39.1 fl (35.1-43.9); Red Blood Count 4.91 M/mm3 (4.6-6.2); White Blood Count 6.6 K/mm3 (4.4-11.0)
[2023-12-06 13:16] LABS: Anion Gap 5 (5-15); BUN 31 mg/dL (7-18); BUN/Creat Ratio 26.1 RATIO (10-20); Calcium,Total 9.5 mg/dL (8.5-10.1); Chloride 104 mmol/L (98-107); Creatinine, Serum 1.19 mg/dL (0.70-1.30); EST Glomerular Filtration Rate 67 mL/min (>60); Est Glom Filt Rate - Afr Amer 81 mL/min (>60); Glucose 177 mg/dL (74-106); Potassium 4.7 mmol/L (3.5-5.1); Sodium Level 136 mmol/L (136-145)
[2023-12-06 13:47] LABS: Hemoglobin A1c 7.6 % (3.8-5.6)
--- NOTE | 2023-12-08 16:56 | PCM.HP.BLA ---
History and Physical Date of Admission: 12/12/23 Jaspal Freeman is a 58 year old gentleman who presents for a cardiac catheterization to assess his bicuspid aortic valve. He had previously presented to [facility] [place] on 06/22/2022 for chest pain. His troponins were negative however he did have an abnormal stress test. He did undergo a diagnostic heart catheterization. This demonstrated left main mild calcification, LAD moderate disease with 50% stenosis, circumflex mild with less than 30% stenosis, RCA moderate with up to 50% stenosis. He was also noted to have a bicuspid aortic valve and a dilated aortic root. Medical management was recommended. Echocardiogram done during hospital stay demonstrated an ejection fraction of 55%, bicuspid aortic valve, mean gradient of 20 mmHg, stage I diastolic dysfunction. He does have a history of hypertension, hyperlipidemia and diabetes. and both think that he is more SOB with exertion. 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 He also notes that he has CP/heaviness with this. He does occasionally have lightheadedness. He has not had any syncope. Intake Vital Signs See EMR Allergies See EMR Medications See EMR [facility] Medical History Arteriosclerotic heart disease (ASHD) Diabetes Dilated aortic root Essential hypertension Heart valve problem High blood pressure High cholesterol History of aortic stenosis Hyperlipidemia Microalbuminuria Obesity Surgical History Hx of tonsillectomy Family History Other CVA (cerebral vascular accident) Colon cancer Diabetes Heart disease High cholesterol Hypertension Kidney disease Myocardial infarction Social History Smoking Status: Never smoker alcohol intake: current alcohol intake frequency: holidays/special occasions only substance use type: does not use what type of physical activity do you participate in: none ROS Const Const: Negative for fatigue, weakness, headache(s), frequent falls, excessive sweating, weight gain or weight loss Eyes Eyes: Negative for blind spots, loss of peripheral vision, transient loss of vision, blurry vision, change in vision or double vision ENT ENT: Negative for headache(s), dizziness, tinnitus, Nosebleed/epistaxis or balance problems Cardio Chest Pain: Yes Palpitations: No Edema: None Muscle aches with walking: None Resp Respiratory: Positive for SOB with activity (see HPI); Negative for SOB at rest, SOB orthopnea\SOB lying down or Cough GI GI: Negative nausea, vomiting, heartburn, bloating, vomiting blood/hematemesis, bright, red blood in stools or black,tarry stools : Negative for hematuria Musc Musc: Negative for muscle aches/ myalgia, muscle weakness, joint pain or balance problems Skin Skin: Negative rash or wounds Neuro Neuro: Negative for dizziness, lightheadedness, near syncope, syncope, orthostatic symptoms, frequent falls, headache(s), weakness, confusion, memory loss, restless legs, blurry vision or double vision [place] Hematologic/Lymphatic: Negative for easy bleeding or easy bruising Endo Endo: Negative for fatigue, cold intolerance, heat intolerance or excessive sweating Psych Psych: Negative for anxiety or depression Allergy Allergy/Immunology: Negative for rash Cardiology Exam Const Appearance: cooperative, healthy appearing, comfortable, no acute distress and well developed Orientation: alert, awake and oriented x3 Head Head: normal to inspection Ears: hearing grossly normal bilaterally Nose: external nose normal Face and Sinus: face symmetric Mouth: oral mucosae normal, lip normal and moist mucous membranes Eyes General: appearance normal, both eyes and all related structures Eyelids: eyelids normal Conjunctivae: conjunctivae normal Pupils: PERRL EOM: EOM intact bilaterally Neck Neck: normal visual inspection and trachea midline; Negative no JVD Carotids: Negative bruit Chest Chest inspection: normal inspection of the chest Auscultation: Bilateral: Clear to Auscultation Cardio Palpation: normal PMI Rate: regular rate Rhythm: regular rhythm Heart sounds: S1 normal, S2 normal and murmur; Negative rub or gallop Murmur: Grade 2/6, harsh and mid systolic GI GI: soft, no hepatosplenomegaly and bowel sounds present Neuro General: patient alert, patient awake, patient oriented x3 and CN's II-XI intact bilaterally Extremities Pulses: Normal: Right Posterior Tibial Pulse, Left Posterior Tibial Pulse, Right Radial Pulse and Left Radial Pulse Lower Extremity Edema: None: Bilateral Psych Psychological: normal affect Supplemental Info Supplemental Information Echocardiogram 11/29/2023: Interpretation Summary Normal LV size. Left ventricular systolic function is normal. The estimated ejection fraction is 65 %. Bicuspid aortic valve. Mean aortic valve gradient 37 mmHg. The left atrium is mildly enlarged. Stage 1 diastolic dysfunction. Peak aortic valve gradient 60 mmHg. Moderate to severe aortic stenosis. Cardiac cath 06/2022: Moderate coronary artery disease with calcification noted of the right and left coronary arteries and a calcified bicuspid aortic valve. RECOMMENDATIONS Medical therapy DESCRIPTION OF? PROCEDURE The patient arrived to the procedure lab. The risks and benefits of the procedure as well as a full description of our services here and current unavailability of surgical backup were fully explained to the patient and/or their significant other prior to the catheterization. The Timeout was completed, verifying the correct patient and procedure. The patient's procedural site was prepped and draped in the usual fashion. Local anesthetic was given subcutaneously to right radial region with Lidocaine 2%. Using a modified Seldinger technique, arterial access was obtained via the right radial artery, a 6Fr sheath was inserted.? Right Coronary Artery selective angiography was performed in multiple views using a 5 Fr. 4.0 Bridgton catheter. Left Coronary Artery selective angiography was performed in multiple views using a 5 Fr. JL3.5 catheter. Left Ventriculography was performed in SUAREZ projection using a 5 Fr. Pigtail catheter. LV to AO pullback pressures were then recorded.The arterial sheath was pulled and a TR Band was applied for hemostasis CORONARY ANGIOGRAPHY DOMINANCE:? Right Dominant LEFT HEART ASSESSMENT Left Ventricular Ejection Fraction: by LV Gram 55 % Normal LV wall motion Normal Left Ventricular systolic function LEFT MAIN: Mild calcification, Angiographically normal LEFT ANTERIOR DESCENDING ARTERY: Moderate calcification MID LAD: Moderate luminal irregularities up to 50% CIRCUMFLEX ARTERY: Mild luminal irregularities less than 30% RAMUS: No significant disease noted RIGHT CORONARY ARTERY: Moderate luminal irregularities up to 50% MID RCA: Moderate calcification VALVE FINDINGS: Aortic Valve Calcification - mild Bicuspid Aortic Valve AORTIC ROOT: Dilated Stress Test Report Date: 06-23-2022 Procedure: Exercise tolerance test/imaging study Indications: Chest pain Consent: Per the patient Procedure: The patient exercised on a Andrey protocol for 8 minutes completing Stage II and 2 minutes of Stage III achieving a peak heart rate of 141 bpm (85% predicted maximal heart rate) with a peak blood pressure 162/70 mmHg and a peak MET capacity of 9 METs. The baseline ECG demonstrated normal sinus rhythm.? The peak exercise ECG demonstrated approximately 2 mm of horizontal/downsloping ST segment depression in leads II, III, aVF, and approximately [address] segment depression in leads V5 and V6 with gradual resolution towards baseline in recovery. There were no cardiac dysrhythmias pretest, during exercise, or recovery.? The functional capacity was considered good. There was left shoulder discomfort and dyspnea with spontaneous improvement in recovery. The examination was discontinued secondary to left shoulder discomfort and dyspnea. Impression: 1.? Technically adequate (percent predicted maximal heart rate greater than 85%) exercise tolerance test 2.? Peak exercise ECG considered abnormal with approximately 2 mm horizontal/downsloping ST segment depression in leads II, III, aVF, and approximately [address] segment depression in leads V5 and V6 with gradual resolution towards baseline in recovery 3.? There were no cardiac dysrhythmias pretest, during exercise, or recovery 4.? Nuclear images pending Myocardial perfusion imaging study: Technique: The patient was injected with 11.0 mCi of technetium 99m Cardiolite and subsequently rest SPECT Cardiolite nuclear imaging was obtained in the horizontal long, vertical long, and short axis views. The patient exercised on a Andrey protocol for 8 minutes completing Stage II and 2 minutes of Stage III achieving a peak heart rate of 141 bpm (85% predicted maximal heart rate) with a peak blood pressure 162/70 mmHg and a peak MET capacity of 9 METs. The patient was injected with 33.2 mCi of technetium 99m Cardiolite and subsequently stress SPECT Cardiolite nuclear imaging was obtained in the horizontal long, vertical long, and short axis views.? A gated Cardiolite study at peak stress was obtained. Interpretation: Rest and stress SPECT Cardiolite nuclear imaging status post realignment, normalization, and attenuation correction, demonstrates rest the appearance of relative uniform tracer uptake and status post-rest the appearance of an area of diminished tracer uptake in portions of the septal/septal apical segments.? There are similar type findings on the resting and stress polar map images.? There is end systolic thickening and brightening.? The gated Cardiolite study demonstrates myocardial thickening and inward wall motion.? The reported LVEF is 53%. Impression: 1.? Rest and stress SPECT Cardiolite nuclear imaging demonstrate myocardial perfusion changes concerning for an area of stress-induced myocardial ischemia involving portions of the septal/septal apical segments. 2.? The gated Cardiolite study reports an LVEF of 53%. Echocardiogram 06/2022: Normal LV size. Left ventricular systolic function is normal. The estimated ejection fraction is 55 %. Bicuspid aortic valve. Mild focal aortic valve calcification. Mean aortic valve gradient 20 mmHg. Stage 1 diastolic dysfunction. Compared to previous study, the left ventricular systolic function is the same.. ? Assessment and Plan Assessment and Plan (1) Arteriosclerotic heart disease (ASHD): Status: Acute Plan: Patient does have moderate disease. He does have worsening SOB, his echocardiogram demonstrated moderate to severe aortic stenosis. Will proceed with a cardiac catheterization to assess his coronary arteries, as well as his aortic valve. Depending on results, further recommendations will be made. (2) Bicuspid aortic valve: Status: Acute Plan: Patient has a history of bicuspid aortic valve. His most recent echocardiogram from 11/29/2023 demonstrated an ejection fraction of 65%, a bicuspid aortic valve with a peak aortic valve gradient 60 mmHg, and moderate to severe aortic stenosis. Would like to proceed with a cardiac catheterization to further assess his aortic valve. Depending on results, further recommendations will be made.
[2023-12-09 09:56] VITALS: BMI 29.7
--- NOTE | 2023-12-12 10:16 | CL.D_ITS ---
Patient Name: LARISSA MADERA Study Date: 12/12/2023 Performing: Kris Rose MD Ht: 67 inches 170.18 cm : 1965 Wt: 189.99 lbs 86.18 kg Age: 58 Gender: male BSA: 1.98 PROCEDURE(S) PERFORMED DC02-(14965)LHC/COR DC11-(50754)AO ROOT ANGIO WITH HEART CATH CLINICAL PROFILE AND INDICATIONS Indications: Valvular Disease Heart Failure: None Stress/Imaging Stress/Image Study Performed: No CAD Presentations: Symptom unlikely to be ischemic. CONCLUSIONS Dilated aortic root, bicuspid aortic valve, moderately severe aortic stenosis, moderate coronary disease involving the LAD and the right coronary artery RECOMMENDATIONS Will recommend surgical evaluation for aortic valve replacement, aortic root reinforcement and consideration of LAD bypass. DESCRIPTION OF PROCEDURE The patient arrived to the procedure lab. The risks and benefits of the procedure as well as a full description of our services here and current unavailability of surgical backup were fully explained to the patient and/or their significant other prior to the catheterization. The Timeout was completed, verifying the correct patient and procedure. The patient's procedural site was prepped and draped in the usual fashion. Local anesthetic was given subcutaneously to right radial region with Lidocaine 2%. Using a modified Seldinger technique, arterial access was obtained via the right radial artery, a 6Fr sheath was inserted. Right Coronary Artery selective angiography was then performed in multiple views using a 5 Fr. 4.0 Odin catheter. Left Coronary Artery selective angiography was performed in multiple views using a 5 Fr. JL3.5 catheter. Ascending (root) aorta selective angiography was then performed in single view. Ascending (root) aorta selective angiography was then performed in single view.The arterial sheath was pulled and a TR Band was applied for hemostasis. 10cc air CORONARY ANGIOGRAPHY DOMINANCE: Right Dominant LEFT HEART ASSESSMENT LEFT MAIN: Mild calcification, Mild luminal irregularities LEFT ANTERIOR DESCENDING ARTERY: Moderate calcification, Moderate disease noted in the proximal to mid left anterior descending artery with approximately 50 to 60% stenosis noted in the LAD CIRCUMFLEX ARTERY: Mild diffuse disease noted in the left circumflex artery of approximately 30% stenosis RIGHT CORONARY ARTERY: Dominant calcified right coronary artery with mild to moderate 40 to 50% stenosis in the proximal and mid regions. And diffuse 30% stenosis noted distally VALVE FINDINGS: Aortic Valve Calcification - moderate Bicuspid Aortic Valve Aortic Valve Stenosis - severe AORTIC ROOT: Dilated COMPLICATIONS No Complications PROCEDURE MEDICATIONS Fentanyl 50 mcg IV Versed 1 mg IV Oxygen: 2 L/min via nasal cannula Heparin given IA 12/12/2023 09:36:34 Verapamil 2.5mg, 3000 units of Heparin given IA 12/12/2023 09:36:34 SUMMARY OF HEMODYNAMIC DATA Time AIR REST ECG 08:56:15 Art 130/67 (90) 09:41:15 AO 121/73 (92) SA 09:49:34 Signed By Kris Rose MD On 12/12/2023 10:15:43 Kris Rose MD
== END 2023-12-12 12:00 | disposition home or self-care (01) ==
PROVIDERS: Internal Medicine Endocrinology, Diabetes & Metabolism; Physician Assistant Medical; PCP Family Medicine Geriatric Medicine; Referring Provider Internal Medicine Cardiovascular Disease; Visit Provider Internal Medicine Cardiovascular Disease
DX: I70.0 Atherosclerosis of aorta (principal); E11.9 Type 2 diabetes mellitus without complications; I10 Essential (primary) hypertension; E78.00 Pure hypercholesterolemia, unspecified; I25.10 Atherosclerotic heart disease of native coronary artery without angina pectoris; I35.0 Nonrheumatic aortic (valve) stenosis
CPT/HCPCS: 36415; 71046; 80048; 83036; 85027; 93005; 93454; 99152; 99153; J7040; C1769; C1894; Q9967

== ENCOUNTER → 2024-02-01 | Outpatient (CLI) | payer OTHER, SELFPAY ==
--- NOTE | 2024-02-01 11:14 | RAD_ITS ---
STUDY: X-RAY CHEST REASON FOR EXAM: Male, 58 years old. Pleural effusion follow-up. TECHNIQUE: Frontal and lateral views of the chest. COMPARISON: 12/06/2023 FINDINGS: Low volume inspiration with bibasilar atelectasis, left greater than right. New small pleural effusions. Cardiomegaly with new sternotomy wires, left atrial appendage device, valve replacement and changes of coronary artery bypass graft. No acute or emergent finding. Normal visualized thoracic spine. Normal visualized ribs, clavicles, and shoulders. No abnormality of the visualized soft tissue structures of the upper abdomen. RAD/Chest PA and Lateral IMPRESSION: Changes of coronary artery bypass grafting with low volume inspiration and small effusions, all new since the prior study. No acute or emergent finding. Electronically Signed: José Morales MD at 12:25 EDT ,
[2024-02-01 12:46] LABS: Absolute Lymphocyte Count 1.53 X10^3/uL (0.83-4.51); Absolute Neutrophil Count 4.8 X10^3/uL (2.0-7.7); Basophil# 0.02 X10^3/uL; Basophil% 0.3 % (0-1); Eosinophil# 0.14 X10^3/uL; Eosinophils% 1.9 % (0-5); Hematocrit 29.7 % (40-54); Hemoglobin 9.7 g/dL (13.0-16.5); Lymphocyte # 1.53 X10^3/ul (0.83-4.51); Lymphocyte % 21.1 % (19-41); Mean Corp Hgb Conc 32.7 g/dL (32-36); Mean Corpuscular Volume 88.7 fL (80-94); Mean Platelet Vol. 9.4 fl (6.2-12.0); Monocyte# 0.74 X10^3/uL; Monocyte% 10.2 % (0-10); NRBC Flagged by Analyzer 0 % (0-5); Neutrophil # 4.78 X10^3/uL (2.7-7.7); Neutrophil % 65.8 % (47-70); Platelet Count 237 K/mm3 (150-450); RBC Distribution Width CV 13.3 % (11.6-14.6); RBC Distribution Width SD 43.2 fl (35.1-43.9); Red Blood Count 3.35 M/mm3 (4.6-6.2); White Blood Count 7.3 K/mm3 (4.4-11.0)
[2024-02-01 13:07] LABS: Anion Gap 6 (5-15); BUN 23 mg/dL (7-18); BUN/Creat Ratio 22.8 RATIO (10-20); Calcium,Total 9.5 mg/dL (8.5-10.1); Chloride 102 mmol/L (98-107); Creatinine, Serum 1.01 mg/dL (0.70-1.30); EST Glomerular Filtration Rate 81 mL/min (>60); Est Glom Filt Rate - Afr Amer 98 mL/min (>60); Glucose 139 mg/dL (74-106); Potassium 4.7 mmol/L (3.5-5.1); Sodium Level 135 mmol/L (136-145)
== END | disposition home or self-care (01) ==
PROVIDERS: PCP Family Medicine Geriatric Medicine; Referring Provider Family Medicine Geriatric Medicine; Visit Provider Family Medicine Geriatric Medicine
DX: E78.5 Hyperlipidemia, unspecified (principal); J90 Pleural effusion, not elsewhere classified
CPT/HCPCS: 36415; 71046; 80048; 85025

== ENCOUNTER → 2024-05-22 | Outpatient (CLI) | payer OTHER, SELFPAY ==
[2024-05-22 13:49] LABS: Absolute Lymphocyte Count 2.34 X10^3/uL (0.83-4.51); Basophil# 0.07 X10^3/uL; Eosinophil# 0.12 X10^3/uL; Eosinophils% 1.6 % (0-5); Hemoglobin 15.1 g/dL (13.0-16.5); Lymphocyte # 2.34 X10^3/ul (0.83-4.51); Lymphocyte % 32.1 % (19-41); Mean Corp Hgb Conc 32.8 g/dL (32-36); Mean Corpuscular Volume 82.3 fL (80-94); Mean Platelet Vol. 9.7 fl (6.2-12.0); Monocyte# 0.69 X10^3/uL; Monocyte% 9.5 % (0-10); NRBC Flagged by Analyzer 0 % (0-5); Neutrophil # 4.04 X10^3/uL (2.7-7.7); Neutrophil % 55.4 % (47-70); Platelet Count 219 K/mm3 (150-450); RBC Distribution Width CV 14.1 % (11.6-14.6); Red Blood Count 5.59 M/mm3 (4.6-6.2); White Blood Count 7.3 K/mm3 (4.4-11.0)
[2024-05-22 14:29] LABS: Bilirubin, Direct 0.19 mg/dL (0.00-0.30); Cholesterol 119 mg/dL (200); High Density Lipoprotein 50 mg/dL; Triglycerides 147 mg/dL; Very Low Density Lipoprotein 29 mg/dL (5-40)
[2024-05-22 14:34] LABS: ALB/GLOB Ratio 1.1 RATIO (0.9-2.4); AST(SGOT) 35 U/L (15-37); Alanine Aminotransfer ALT/SGPT 45 U/L (16-61); Albumin, Serum 4.2 g/dL (3.2-5.0); Alkaline Phosphatase 69 U/L (45-117); Anion Gap 8 (5-15); BUN 23 mg/dL (7-18); BUN/Creat Ratio 19.3 RATIO (10-20); Calcium,Total 9.8 mg/dL (8.5-10.1); Chloride 101 mmol/L (98-107); Creatinine, Serum 1.19 mg/dL (0.70-1.30); EST Glomerular Filtration Rate 67 mL/min (>60); Est Glom Filt Rate - Afr Amer 81 mL/min (>60); Globulin 3.8 g/dL (2.2-4.2); Glucose 173 mg/dL (74-106); Potassium 5.2 mmol/L (3.5-5.1); Sodium Level 136 mmol/L (136-145)
== END | disposition home or self-care (01) ==
LOC: POLAB3 13:21
PROVIDERS: Physician Assistant Medical; Visit Provider Family Medicine Geriatric Medicine
DX: E11.65 Type 2 diabetes mellitus with hyperglycemia (principal); I10 Essential (primary) hypertension; E78.5 Hyperlipidemia, unspecified
CPT/HCPCS: 36415; 80053; 80061; 82248; 84443; 85025

== ENCOUNTER → 2024-05-29 | Outpatient (CLI) | payer OTHER, SELFPAY ==
--- NOTE | 2024-05-29 | LES_PTH ---
PATIENT: LARISSA MADERA LOC: POLAB3 U#:[id number] AGE/SX: 58/M ROOM: RE05/29/[address]: Dr. Arnaldo Cervantes MD : 1965 BED: DIS: 05/29/2024 SPEC #: [id number] RECD: 05/29/24 13:10 STATUS: OLIVE DREW #: [id number] AISSATOU: 05/29/24 00:[address]: Arnaldo Cervantes Chi DEPT: SURGICAL PATHOLOGY RECD BY: Ellis Holcomb Tissues: Skin of leg, NOS Procedures: Surgery Specimen Level IV HEADER OPERATION: Not noted PRE-OP DIAGNOSIS: Unspecified disorders of the skin and subcutaneous tissue TISSUE SUBMITTED: Right leg MICROSCOPIC DIAGNOSIS Skin lesion of right leg, biopsy: Verrucous keratosis with focal actinic change, mildly inflamed. AM/mr 05/30/2024 COMMENT Case has been reviewed in consultation with Dr. Almaraz who concurs with the above diagnosis. IDC:SJ MICROSCOPIC DESCRIPTION Slides are reviewed. GROSS DESCRIPTION Received in fixative is one container labeled with the patient's name and designated Right leg. The specimen consists of a bobby-white skin piece measuring 1.5 x 0.9cm in and up to 0.2cm in thickness. There is a brown round lesion on the surface measuring 1.0 x 0.9cm. The specimen is inked, serially sectioned and submitted entirely in one cassette. 05/29/2024 TC:5 CPT:73349
[2024-05-29 11:19] LABS: Anion Gap 7 (5-15); BUN 23 mg/dL (7-18); BUN/Creat Ratio 20.5 RATIO (10-20); Calcium,Total 10.6 mg/dL (8.5-10.1); Chloride 101 mmol/L (98-107); Creatinine, Serum 1.12 mg/dL (0.70-1.30); EST Glomerular Filtration Rate 71 mL/min (>60); Est Glom Filt Rate - Afr Amer 86 mL/min (>60); Glucose 181 mg/dL (74-106); Potassium 5.3 mmol/L (3.5-5.1); Sodium Level 134 mmol/L (136-145)
== END | disposition home or self-care (01) ==
LOC: POLAB3 10:08
PROVIDERS: PCP Family Medicine Geriatric Medicine; Visit Provider Family Medicine Geriatric Medicine
DX: L82.0 Inflamed seborrheic keratosis (principal); I10 Essential (primary) hypertension; L57.0 Actinic keratosis
CPT/HCPCS: 36415; 80048; 88305

== ENCOUNTER → 2024-05-31 | Outpatient (CLI) | payer OTHER, SELFPAY ==
[2024-05-31 11:06] LABS: PTHIN 32.4 pg/mL (18.4-80.1)
[2024-05-31 11:48] LABS: Anion Gap 8 (5-15); BUN 26 mg/dL (7-18); BUN/Creat Ratio 26.8 RATIO (10-20); Calcium,Total 10.3 mg/dL (8.5-10.1); Chloride 103 mmol/L (98-107); Creatinine, Serum 0.97 mg/dL (0.70-1.30); EST Glomerular Filtration Rate 84 mL/min (>60); Est Glom Filt Rate - Afr Amer 102 mL/min (>60); Glucose 139 mg/dL (74-106); Potassium 4.7 mmol/L (3.5-5.1); Sodium Level 134 mmol/L (136-145)
== END | disposition home or self-care (01) ==
LOC: POLAB3 10:18
PROVIDERS: PCP Family Medicine Geriatric Medicine; Visit Provider Family Medicine Geriatric Medicine
DX: E83.52 Hypercalcemia (principal)
CPT/HCPCS: 36415; 80048; 83970

== ENCOUNTER → 2024-12-04 | Outpatient (CLI) | payer OTHER, SELFPAY ==
[2024-12-04 13:42] LABS: Absolute Lymphocyte Count 1.99 X10^3/uL (0.83-4.51); Absolute Neutrophil Count 3.7 X10^3/uL (2.0-7.7); Basophil# 0.04 X10^3/uL; Basophil% 0.6 % (0-1); Eosinophil# 0.12 X10^3/uL; Eosinophils% 1.9 % (0-5); Hemoglobin 14.5 g/dL (13.0-16.5); Lymphocyte # 1.99 X10^3/ul (0.83-4.51); Lymphocyte % 31.6 % (19-41); Mean Corp Hgb Conc 34.5 g/dL (32-36); Mean Corpuscular Volume 86.8 fL (80-94); Mean Platelet Vol. 9.8 fl (6.2-12.0); Monocyte# 0.46 X10^3/uL; Monocyte% 7.3 % (0-10); NRBC Flagged by Analyzer 0 % (0-5); Neutrophil # 3.65 X10^3/uL (2.7-7.7); Neutrophil % 58.1 % (47-70); Platelet Count 223 K/mm3 (150-450); RBC Distribution Width CV 12.7 % (11.6-14.6); RBC Distribution Width SD 40.1 fl (35.1-43.9); Red Blood Count 4.84 M/mm3 (4.6-6.2); White Blood Count 6.3 K/mm3 (4.4-11.0)
[2024-12-04 23:32] LABS: PSA,Total - Annual Screen 0.22 ng/mL (0.02-4.00)
[2024-12-05 00:22] LABS: ALB/GLOB Ratio 1.6 RATIO (0.9-2.4); AST(SGOT) 32 U/L (<=37); Alanine Aminotransfer ALT/SGPT 26 U/L (<=46); Albumin, Serum 4.3 g/dL (3.5-5.0); Alkaline Phosphatase 62 U/L (40-129); Anion Gap 17 (5-15); BUN 27 mg/dL (4-19); Calcium 9.5 mg/dL (7.6-11.0); Carbon Dioxide 21.2 mmol/L (22.0-29.0); Chloride 97 mmol/L (96-108); Creatinine, Serum 1.1 mg/dL (0.8-1.3); EST Glomerular Filtration Rate 76 (>60); Globulin 2.7 g/dL (2.2-4.2); Glucose 379 mg/dL (70-99); Potassium 4.7 mmol/L (3.3-5.1); Sodium Level 135 mmol/L (133-145); Total Bilirubin 0.36 mg/dL (0.00-1.30)
== END | disposition home or self-care (01) ==
PROVIDERS: PCP Family Medicine Geriatric Medicine; Visit Provider Family Medicine Geriatric Medicine
DX: Z12.5 Encounter for screening for malignant neoplasm of prostate (principal); E11.65 Type 2 diabetes mellitus with hyperglycemia; I10 Essential (primary) hypertension
CPT/HCPCS: 36415; 80053; 84153; 84443; 85025; G0103

== ENCOUNTER → 2024-12-25 | Outpatient (CLI) | payer OTHER, SELFPAY ==
--- NOTE | 2024-12-25 12:46 | ECHOD_ITS ---
Reason For Study Reason For Study: VALVE REPLACMENT EVAL Procedure This was a 2D Doppler, Color Flow transthoracic echocardiogram. Exam performed in department. Left Ventricle Normal LV size. The left ventricular ejection fraction is 60 %. Stage 1 diastolic dysfunction. No regional wall motion abnormalities noted. Right Ventricle Normal RV size. Normal systolic function. Atria Normal left atrium. Normal right atrium. Mitral Valve Normal mitral valve. Tricuspid Valve Normal tricuspid valve. Mild (1+) tricuspid valve insufficiency. Pulmonary artery systolic pressure is 30 mmHg. Aortic Valve Bioprosthetic aortic valve functioning normally. Pulmonic Valve Normal pulmonic valve. Great Vessels Normal aortic root. Pericardium/Pleural No pericardial effusion. MMode/2D Measurements & Calculations LVIDd: 4.3 cm IVSd: 1.0 cm LVOT diam: 2.0 cm LVIDs: 3.0 cm LVPWd: 1.1 cm LVOT area: 3.1 cm2 RVDd: 3.6 cm FS: 30.2 % Ao root diam: 3.3 cm LAV(MOD-bp): 38.9 ml LVAd ap4: 28.1 cm2 LAV(MOD-bp) Indexed: 20.1 ml/m2 LVLd ap4: 8.4 cm LAV(MOD-sp2): 36.7 ml EDV(MOD-sp4): 78.3 ml LAV(MOD-sp4): 40.1 ml EDV(sp4-el): 79.6 ml LVAs ap4: 16.1 cm2 LVLs ap4: 7.0 cm ESV(MOD-sp4): 31.7 ml ESV(sp4-el): 31.5 ml EF(MOD-sp4): 59.5 % EF(sp4-el): 60.5 % SV(MOD-sp4): 46.6 ml SV(sp4-el): 48.2 ml LA A4 area: 16.3 cm2 SI(MOD-sp4): 24.1 ml/m2 LA dimension(2D): 3.5 cm RA A4 area: 14.6 cm2 TAPSE: 1.5 cm Time Measurements MV dec time: 0.23 sec Doppler Measurements & Calculations MV E max emmanuel: 56.6 cm/sec Lat Peak E' Emmanuel: 12.6 cm/sec Med Peak E' Emmanuel: 8.8 cm/sec MV A max emmanuel: 68.5 cm/sec E/E' lat: 4.5 E/E' med: 6.4 MV E/A: 0.83 Ao V2 max: 189.1 cm/sec LV V1 max: 129.2 cm/sec SV(LVOT): 81.7 ml Ao max P.3 mmHg LV V1 max P.7 mmHg Ao V2 mean: 124.0 cm/sec LV V1 mean P.3 mmHg Ao mean P.9 mmHg LV V1 mean: 84.2 cm/sec Ao V2 VTI: 33.8 cm LV V1 VTI: 26.3 cm AV (velocity ratio): 0.78 SILVESTRE(I,D): 2.4 cm2 SILVESTRE(V,D): 2.1 cm2 PA V2 max: 122.8 cm/sec TR max emmanuel: 256.0 cm/sec TR max P.2 mmHg ECHO/Echo Complete Interpretation Summary The left ventricular ejection fraction is 60 %. Normal LV size. Stage 1 diastolic dysfunction. Pulmonary artery systolic pressure is 30 mmHg. Bioprosthetic aortic valve functioning normally. Ordering Physician: Jessica Sheehan Referring Physician: BETZY CHATMAN Performed By: Elsa Barry RDCS
== END | disposition home or self-care (01) ==
PROVIDERS: PCP Family Medicine Geriatric Medicine; Referring Provider Physician Assistant Medical; Visit Provider Physician Assistant Medical
DX: Z95.2 Presence of prosthetic heart valve (principal)
CPT/HCPCS: 93306

== ENCOUNTER → 2025-06-04 | Outpatient (CLI) | payer OTHER, SELFPAY ==
[2025-06-04 13:40] LABS: Hematocrit 42.3 % (40-54); Hemoglobin 14.6 g/dL (13.0-16.5); Immature Granulocytes Count 0.050 X10^3/uL (0.0-0.0); Mean Corp Hgb Conc 34.5 g/dL (32-36); Mean Corpuscular Volume 86.9 fL (80-94); Mean Platelet Vol. 9.8 fl (6.2-12.0); NRBC Flagged by Analyzer 0 % (0-5); Platelet Count 198 K/mm3 (150-450); RBC Distribution Width CV 12.7 % (11.6-14.6); RBC Distribution Width SD 39.7 fl (35.1-43.9); Red Blood Count 4.87 M/mm3 (4.6-6.2); White Blood Count 8.8 K/mm3 (4.4-11.0)
[2025-06-04 15:12] LABS: AST(SGOT) 33 U/L (<=37); Alanine Aminotransfer ALT/SGPT 39 U/L (<=46); Albumin, Serum 4.8 g/dL (3.5-5.0); Alkaline Phosphatase 63 U/L (40-129); Anion Gap 13 (5-15); BUN 23 mg/dL (4-19); BUN/Creat Ratio 20.4 RATIO (10-20); Calcium,Total 10.6 mg/dL (7.6-11.0); Carbon Dioxide 25.4 mmol/L (21.0-32.0); Chloride 99 mmol/L (98-108); Globulin 2.8 g/dL (2.2-4.2); Glucose 198 mg/dL (70-99); Potassium 4.6 mmol/L (3.3-5.1); Vitamin D,25 Hydroxy 56.1 ng/mL (30-100)
[2025-06-04 21:25] LABS: Xtra Tube Kwok EXTRA TUBE
== END | disposition home or self-care (01) ==
LOC: POLAB3 13:25
PROVIDERS: PCP Family Medicine Geriatric Medicine; Visit Provider Family Medicine Geriatric Medicine
DX: E03.9 Hypothyroidism, unspecified (principal); E55.9 Vitamin D deficiency, unspecified; I10 Essential (primary) hypertension
CPT/HCPCS: 36415; 80053; 82306; 84443; 85025